=== PATIENT | female | born 2000 | race Caucasian/White ===

== ENCOUNTER 2021-04-10 19:39 | Emergency (ER) | payer OTHER, SELFPAY ==
[2021-04-10] VITALS (22 sets, daily range): BP systolic 101–154; BP diastolic 65–84; PULSE 80–105; RESP 12–22; TEMP 36.9; O2SAT 95–100
--- NOTE | ~2021-04-10 | XR_ITS ---
EXAMINATION: XR chest 1V portable DATE: 04/10/2021 20:57 INDICATION: Chest pain, shortness of breath and palpitations TECHNIQUE: frontal view of the chest was obtained. COMPARISON: None FINDINGS: The lungs are clear with no focal airspace opacities, pulmonary edema, pleural effusion or pneumothor ax. The cardiomediastinal silhouette is normal. Visualized bones and soft tissues are unremarkable. IMPRESSION: 1. Normal chest radiograph. Reviewed, dictated and finalized at location A. IMPRESSION: 1. Normal chest radiograph.
--- NOTE | 2021-04-10 19:44 | ECG_ITS ---
Measurements Intervals [place] Rate: 101 P: 70 ID: [id number] QRS: 85 QRSD: 86 T: 46 QT: 335 QTc: 434 Interpretive Statements SINUS TACHYCARDIA BORDERLINE T WAVE ABNORMALITY- ANTERIOR LEADS BASELINE ARTIFACT- I, II, AVL BORDERLINE ECG Electronically Signed On 04-10-2021 20:06:00 CDT by Geo Green D.O.
--- NOTE | 2021-04-10 20:34 | ED.ARRPALP ---
HPI - Arrhythmia/Palpitations General Chief Complaint: Arrhythmia/Palpitations Stated Complaint: headaches, palpations, shortness of breath Time Seen by Provider: 04/10/21 20:31 History of Present Illness HPI narrative: Palpitations intermittenly for the past week. Described as hard pounding irregular heart beat. Associated with mild chest pain, heavy breathing and light headedness. Happens more frequently when lying down at night. She has a h/o anxiety, but says that she has never had this symptoms due to anxiety. She is on lithium and reports sarkis she has never had her level checked. Related Data Allergies Allergy/AdvReac Type Severity Reaction Status Date / Time No Known Allergies Allergy Verified 04/10/21 19:44 Review of Systems Review of Systems: All systems reviewed & are unremarkable except as noted in HPI and below Constitutional: Constitutional: Denies chills and Denies fever(s) Eyes: Eyes: Reports no additional eye complaints ENT: Reports system reviewed and no additional complaints, except as documented Cardiovascular: Cardiovascular: Reports as per HPI Respiratory: Respiratory: Denies dyspnea Gastrointestinal: Gastrointestinal: Denies abdominal pain, Denies nausea and Denies vomiting Genitourinary: Genitourinary: Denies hematuria and Denies dysuria Musculoskeletal: Musculoskeletal: Denies back pain Neurologic: Denies dizziness and Denies weakness [facility] Social History Social History Gender identity (if verbalized by the patient): Female Exam Const: General: healthy appearing, no acute distress and alert Orientation/consciousness: patient oriented x3 HENMT: Head: normal to inspection Neck: Neck: normal visual inspection and no lymphadenopathy Chest: Chest palpation & inspection: no tenderness Resp: Effort & Inspection: normal respiratory effort Auscultation: clear to auscultation bilaterally, no rales, no rhonchi and no wheezes Cardio: Jugular venous distension: no JVD Rate: regular rate Rhythm: regular rhythm Heart sounds: no murmurs GI: Inspection: non-distended GI Palp: Yes Soft to palpation and No Tenderness to palpation present (GI) Skin: General skin exam: normal color Neuro: General: patient oriented x3 and moves all extremities Speech: normal speech Extrem: General: no edema Psych: Appearance: well kempt Affect: normal affect Course Vital Signs Vital signs: Vital Signs Temperature 36.9 C 04/10/21 19:45 Pulse Rate 105 H 04/10/21 19:45 Respiratory Rate 20 04/10/21 19:45 Blood Pressure 154/84 H 04/10/21 19:45 Pulse Oximetry 99 04/10/21 19:45 Temperature 36.9 C 04/10/21 19:45 Pulse Rate 105 H 04/10/21 19:45 Respiratory Rate 20 04/10/21 19:45 Blood Pressure 154/84 H 04/10/21 19:45 Pulse Oximetry 99 04/10/21 19:45 MDM - Arrhythmia/Palpitations MDM Narrative Medical decision making narrative: [place] level is mildly low, but she is stable on treatment. Remainder of work-up is negative. this is almost certainly due to anxiety. Differential Diagnosis Differential diagnosis: Likely palpitations, anxiety, sinus tachycardia and other (dehydration, lithium toxicity) Medical Records Attestation: I reviewed the patient's medical records. Lab Data Attestation: I reviewed the patient's lab results. Result diagrams: 04/10/21 21:04 04/10/21 21:04 Labs: Lab Results 04/10/21 04/10/21 04/10/21 Range/Units 21:04 21:04 21:04 WBC 11.3 H (4.5-10.0) K/mm3 RBC 4.30 (4.2-5.4) M/mm3 Hgb 12.4 (12.0-15.0) g/dL Hct 37.8 (37.0-47.0) % MCV 87.9 (80-100) fl MCH 28.8 (26-34) pg MCHC 32.8 (32-36) g/dl RDW 12.0 (11.5-14.5) % Plt Count 348 (150-375) k/mm3 MPV 8.8 (7.4-10.4) fl Immature Gran % (Auto) 0.4 (0-0.5) % Neut % (Auto) 54.0 (45.5-73.1) % Lymph % (Auto) 34.6 (18.3-44.2) % Hubbard % (Auto) 6.7 (2.
--- NOTE | 2021-04-10 20:41 | PC.NURSE ---
pt to ED c grandma, c/o palpitations and rapid, pounding heart rate x 2 weeks. hx of anxiety and ocd. takes lithium. appears anxious and also reports that whenever her arms are squeezed like they are when obtaining her blood pressure, pt feel like she cannot breathe . placed on solder sprayer, O2 and BP monitors. On monitor, pt appears to have infrequent irregular beats, possibly PVCs. denies past cardiac hx or family hx of congenital abnormalities. a/o x 4. skin pwd.
[2021-04-10 21:11] LABS: Basophils Absolute Auto 0.1 K/mm3 (0.0-0.1); Basophils Percent Auto 0.5 % (0.2-1.2); Eosinophils Absolute Auto 0.4 K/mm3 (0-0.3); Eosinophils Percent Auto 3.8 % (0-4.4); Hematocrit 37.8 % (37.0-47.0); Hemoglobin 12.4 g/dL (12.0-15.0); Immature Granulocyte Absolute 0.04 K/mm3 (0.00-0.031); Immature Granulocyte Percent A 0.4 % (0-0.5); Lymphocytes Percent Auto 34.6 % (18.3-44.2); Mean Corpuscular HGB Conc 32.8 g/dl (32-36); Mean Corpuscular Hemoglobin 28.8 pg (26-34); Mean Corpuscular Volume 87.9 fl (80-100); Mean Platelet Volume 8.8 fl (7.4-10.4); Monocytes Absolute Auto 0.8 K/mm3 (0.1-0.6); Monocytes Percent Auto 6.7 % (2.6-8.5); Neutrophils Absolute Auto 6.1 K/mm3 (1.3-6.7); Platelet Count Result 348 k/mm3 (150-375); White Blood Count 11.3 K/mm3 (4.5-10.0)
[2021-04-10 21:21] LABS: Anion Gap 6 mmol/L (8-16); Blood Urea Nitrogen 8 mg/dL (7-17); Calcium 9.5 mg/dL (8.4-10.2); Carbon Dioxide 23 mmol/L (22-30); Chloride 108 mmol/L (98-107); Estimated CRCL calculation 116 ml/min; Estimated Glomerular Filt Rate > 60; Glucose 92 mg/dL (65-105); Potassium 4.1 mmol/L (3.4-5.0); Sodium 137 mmol/L (137-145)
[2021-04-10 21:23] LABS: D Dimer 0.36 ug/mL (<0.48)
[2021-04-10 21:52] LABS: Lithium 0.3 mmol/L (0.6-1.2)
[2021-04-10] MEDS: SODIUM CHLORIDE 0.9% IV 1,000 ML 999 ML IV CONT (22:01)
== END 2021-04-10 23:13 | disposition home or self-care (01) ==
PROVIDERS: Emergency Provider Emergency Medicine; PCP Internal Medicine Infectious Disease
DX: R00.2 Palpitations (principal); F41.9 Anxiety disorder, unspecified; R00.0 Tachycardia, unspecified; R94.31 Abnormal electrocardiogram [ECG] [EKG]
CPT/HCPCS: 36415; 71045; 80048; 80178; 85025; 85380; 93005; 96360; 99284; J7030

== ENCOUNTER 2025-02-04 22:31 | Emergency (ER) | payer OTHER, SELFPAY ==
--- NOTE | ~2025-02-04 | XR_ITS ---
CHEST RADIOGRAPH, PA AND LATERAL CLINICAL HISTORY: CHEST UPPER ABD PAIN DIZZY NAUSEA . COMPARISON: 04/10/2021 TECHNIQUE: PA and lateral views of the chest. FINDINGS The cardiomediastinal silhouette is unremarkable. The lungs are clear. Visualized osseous structures and soft tissues are unremarkable. IMPRESSION: No focal infiltrate or effusion. Reviewed, dictated and finalized at location A.
--- NOTE | 2025-02-04 22:33 | ECG_ITS ---
Test Date: 2025-02-04 22:46:59 Measurements Intervals [place] Rate: 93 P: 65 NH: 174 QRS: 62 QRSD: 93 T: 45 QT: 340 QTc: 423 Interpretive Statements SINUS RHYTHM INCOMPLETE RIGHT BUNDLE BRANCH BLOCK LOW QRS VOLTAGE IN PRECORDIAL LEADS BORDERLINE ECG No previous ECG available for comparison Electronically Signed On 02-05-2025 06:15:37 CDT by Geo Green D.O.
--- OUTSIDE RECORDS SUMMARY | 2025-02-04 22:34 | XMS_ITS ---
Author Organization Formerly [facility] Address [address] [place] [address] Care Team Providers Care Store Stocker Name Role Phone Guillaume San Primary Care Provider Jessy Pearl Unavailable [phone] Allergies No Known Allergies REASON FOR VISIT sore tailbone Medications Medication SIG (Take, Route, Frequency, Duration) Notes Start Date End Date Status Propranolol HCl 40 MG 1 tablet Twice a d ay for 30 days Active Venlafaxine HCl ER 150 mg 1 capsule with food Once a day for 30 days Active Dexmethylphenidate HCl ER 35 MG 1 capsule in the morning Orally Once a day. for 30 days 01/01/2025 Not-Taking Dexmethylphenidate HCl ER 35 MG 1 capsule in the morning Orally Once a day. Please fill on or after January 27, 2025. for 30 days 01/01/2025 Not-Taking traZODone HCl 150 MG 0.5 tablet as neede d at bedtime Orally Once a day for 30 days Active lamoTRIgine 150 MG 1 tablet Once a day for 30 days Active busPIRone HCl 15 MG 2 tablets in am, 1 tablet in pm Twice a day for 30 days Active Triamcinolone Acetonide 0.1 % 1 application Externally Two times a Week for 30 days 06/12/2024 Not-Taking Shila 3-0.03 MG 1 tablet Orally Once a day for 28 day(s) Active Lurasidone HCl 40 MG 1 tablet in the evening with food Orally Once a day for 7 days 05/24/2024 Active Nicotine Polacrilex 4 MG 1 piece chew for 30 minutes as needed Mouth/Throat every 1-2 hours for 30 days As needed 01/02/2025 Active Dexmethylphenidate HCl ER 35 MG 1 capsule in the morning Orally Once a day. Please fill on or after February 21, 2025. for 30 days 01/01/2025 Active Ketoconazole 2 % as directed Externally Once a day for 30 days 12/15/2022 Not-Taking Influenza Vac Split Quad 0.5 ML as directed Intramuscular once Not-Taking Social History Tobacco Use: Social History Observation Description Date Details (start date - stop date) Unknown Sex Assigned At : Social History Observation Description Sex Assigned At Female Alcohol Screen (Audit-C) Question Answer Notes Did you have a drink containing alcohol in the p ast year? No Tobacco Control (Standard) Question Answer Notes Tobacco use: Uses tobacco in other forms Additional Findings: Tobacco user e-cigarette Problems Problem Type SNOMED Code ICD Code Onset Dates Problem Status W/U Status Risk Notes Problem Nicotine dependence (52415964) Nicotine dependence (F17.200) Active confirmed Vital Signs Weight 228.0 lbs 01/02/2025 Height 66 in 01/02/2025 BMI 36.8 kg/m2 01/02/2025 Blood pressure systolic 112 mm Hg 01/03/20 25 Blood pressure diastolic 76 mm Hg 025 Heart Rate 86 /min 01/02/2025 Oximetry 95 % 01/02/2025 Temperature 98.5 degrees Fahrenheit 01/03/20 25 Respiratory Rate 16 /min 01/02/2025 Encounters Encounter Location Date Provider Diagnosis [place] [address] [place] [address] 01/02/2025 Jessy Pearl Pilonidal cyst L05.91 and Nicotine dependence F17.200 Assessments Encounter Date Diagnosis (ICD Code) Assessment Notes Treatment Notes Treatment Clinical Notes Section Notes 01/02/2025 Pilonidal cyst (ICD-10 - L05.91) 01/02/2025 Nicotine dependence (ICD-10 - F17.200) 01/02/2025 Other Patient may self-administer their own medications or may self-administer their own oral medications per [facility] Protocol. Plan Of Treatment Medication Medication Name Sig Start Date Stop Date Notes Nicotine Polacrilex 4 MG 1 piece chew fo r 30 minutes as needed Mouth/Throat every 1-2 hours for 30 days 01/02/2025 Next Appt Details Follow Up: 6 Months, Reason: f/u Progress Notes * John CHACONB: 0 (24 yo F)Acc No.[id number]:01/02/2025 Progress Notes Patient: Sarita REID Provider: Angela Pearl APRN :2000 A ge:24 Y S ex:Female Date:01/02/2025 Address:[address] [place] [address] , [address], [place] [address] Pcp:Guillaume San Check In:11:33 AM [employer] Subjective: * Chief Complaints: * S ore tailbone * HPI: I nterim History: Emergency room visit N o. W as hospitalized N o.? D epression Screening: PHQ-9 L ittle interest or pleasure in doing things N ot at all, F eeling down, depressed, or hopeless N ot at all, T rouble falling or staying asleep, or sleeping too much N ot at all, F eeling tired or having little energy S everal days, P oor appetite or overeating N ot at all, F eeling bad about yourself or that you are a failure, or have let yourself or your family down N ot at all, T rouble concentrating on things, such as reading the newspaper or watching television N ot at all, M oving or speaking so slowly that other people could have noticed; or the opposite, being so fidgety or restless that you have been moving around a lot more than usual N ot at all, T houghts that you would be better off or of hurting yourself in some way N ot at all, T otal Score 1 ,?Interpretation M inimal Depression. S creening: Parke Suicide Severity Rating Scale (LF) D o you want to initiate with S creener form, 1 . Wish to be : Have you wished you were or wished you could go to sleep and not wake up? N o, 2 . Suicidal Thoughts: Have you actually had any thoughts of killing yourself? N o, 6 . Suicide Behavior Question: Have you ever done anything,started to do anything, or prepared to end your life? N o, I nterpretation: L ow Risk. S ummary: Tailbone pain for 1 week Reports having a bump on tailbone that had a cyst- mom drained it Feeling better PE reveals <2mm papule, no erythema, no drainage Advised to continue antibiotic ointment for next 48 hours, OTC analgesic for pain, ice for pain Requesting nicotine gum to stop vaping. * ROS: G eneral/Constitutional: Denies C hange in appetite. D enies C hills. D enies F atigue. D enies F ever. D enies H eadache. D enies W eight loss.? R espiratory: Denies D yspnea. C ardiovascular: Denies E winsome. D enies C hest pain. D enies?Claudication. G astrointestinal: Denies A bdominal pain. D enies N ausea. G enitourinary: urinary problems D enies. M usculoskeletal: Patient denies m usculoskeletal concerns. S kin: lesions A dmits, S ee HPI. D enies R polly. ? * Medical History: * Surgical History: r hinoplasty belly button removal wisdom teeth removal * Hospitalization/Major Diagno stic Procedure: N o Hospitalization History. * Family History: F ather: alive. M other: alive. * Social History: P rimary Social History: L iving Arrangement L iving Arrangement: I ndependent Living, I s this a supportive environment? Y es. A lcohol Use A lcohol Use Frequency: N ever. I llicit Substance Usage I llicit Substance Usage: N o. E mployment Status E mployment Status:?Unemployed. T obacco Use: T obacco Control (Standard) T obacco use: U ses tobacco in other forms, A dditional Findings: Tobacco user e -cigarette. D rugs/Alcohol: D rugs H ave you used drugs other than those for medical reasons in the past 12 months??No. A lcohol Screen (Audit-C) D id you have a drink containing alcohol in the past year??No. M iscellaneous: D omestic violence: No. Method of learning P referred method of learning: R eading,Discussion,Demonstration,Hearing. * Medications: T akingSyeda 3-0.03 MG Tablet 1 tablet Orally Once a day Lurasidone HCl 40 MG Tablet 1 tablet in the evening with food Orally Once a day lamoTRIgine 150 MG Tablet 1 tablet Once a day busPIRone HCl 15 MG Tablet 2 tablets in am, 1 tablet in pm Twice a day Propranolol HCl 40 MG Tablet 1 tablet Twice a day Venlafaxine HCl ER 150 mg Capsule Extended Release 24 Hour 1 capsule with food Once a day traZODone HCl 150 MG Tablet 0.5 tablet as needed at bedtime Orally Once a day Dexmethylphenidate HCl ER 35 MG Capsule Extended Release 24 Hour 1 capsule in the morning Orally Once a day. Please fill on or after February 21, 2025. Taking Shila 3-0.03 MG Tablet 1 tablet Orally Once a day Taking Lurasidone HCl 40 MG Tablet 1 tablet in the evening with food Orally Once a day Taking lamoTRIgine 150 MG Tablet 1 tablet Once a day Taking busPIRone HCl 15 MG Tablet 2 tablets in am, 1 tablet in pm Twice a day Taking Propranolol HCl 40 MG Tablet 1 tablet Twice a day Taking Venlafaxine HCl ER 150 mg Capsule Extended Release 24 Hour 1 capsule with food Once a day Taking traZODone HCl 150 MG Tablet 0.5 tablet as needed at bedtime Orally Once a day Taking Dexmethylphenidate HCl ER 35 MG Capsule Extended Release 24 Hour 1 capsule in the morning Orally Once a day. Please fill on or after February 21, 2025. Not-TakingTriamcinolone Acetonide 0.1 % Cream 1 application Externally Two times a Week Dexmethylphenidate HCl ER 35 MG Capsule Extended Release 24 Hour 1 capsule in the morning Orally Once a day. Dexmethylphenidate HCl ER 35 MG Capsule Extended Release 24 Hour 1 capsule in the morning Orally Once a day. Please fill on or after January 27, 2025. Ketoconazole 2 % Shampoo as directed Externally Once a day Influenza Vac Split Quad 0.5 ML Suspension Prefilled Syringe as directed Intramuscular once Medication List reviewed and reconciled with the patientNot-Taking Triamcinolone Acetonide 0.1 % Cream 1 application Externally Two times a Week Not-Taking Dexmethylphenidate HCl ER 35 MG Capsule Extended Release 24 Hour 1 capsule in the morning Orally Once a day. Not-Taking Dexmethylphenidate HCl ER 35 MG Capsule Extended Release 24 Hour 1 capsule in the morning Orally Once a day. Please fill on or after January 27, 2025. Not-Taking Ketoconazole 2 % Shampoo as directed Externally Once a day Not-Taking Influenza Vac Split Quad 0.5 ML Suspension Prefilled Syringe as directed Intramuscular once Medication List reviewed and reconciled with the patient * Allergies: N .K.D.A.no[Allergies Verified] Objective: * Vitals: I nitials: LL, Wt:228.0, Ht: 66, BMI:36.8, BP:112/76, HR:86, Oxygen sat %:95, Temp:98.5, RR:16, LMP: 11/2024, Pain scale:3. * Examination: G eneral Examination: GENERAL APPEARANCE: a lert, oriented, well developed, well nourished, in no acute distress. EYES: P ERRLA, sclera and conjunctiva clear. NOSE: n trevor patent. SKIN: S ee HPI. HEART: r egular rate and rhythm, no murmurs. LUNGS: r espirations regular and easy, clear to auscultation bilaterally. ABDOMEN: b owel sounds present, soft, nontender, nondistended, no masses palpable, no organomegaly . Assessment: * Assessment: 1. N icotine dependence - F17.200 2 . P ilonidal cyst - L05.91 (Primary)? Plan: * Treatment: 2. O thers Clinical Notes: Patient may self-administer their own medications or may self-administer their own oral medications per [facility] Protocol. * Procedure Codes: 3 008F BODY MASS INDEX [id number] MEDICAL NUTRITION, INDIV, [id number] BEHAV CHNG SMOKING 3-10 MIN * Preventive Medicine: Counseling: C are goal follow-up plan: B AL management provided Y es, Mariah kilgoree Normal BMI Follow-up L ifestyle education regarding diet. S MOKING: P atient counselled on the dangers of tobacco use and urged to quit. . . * Follow Up: 6 Months (Reason: f/u) * * FIRM [employer]NER Sign off status: Completed true * Provider: Angela Pearl, [place] Date: 0 01/02/2025 Generated for Nelson raman/Karl/eTransmitting on: 0 02/04/2025 10:34 PM CDT History and Physical Notes * HPI (History of Present Illness) Category Sub-Category Detail Notes Category Not es Interim History Was hospitalized No Emergency room visit No Depression Screening PHQ-9 Little inte rest or pleasure in doing things: Not at all Feeling down, depressed, or hopeless: No t at all Trouble falling or staying asleep, or sl eeping too much: Not at all Feeling tired or having little energy: S everal days Poor appetite or overeating: Not at all Feeling bad about yourself o r that you are a failure, or have let yourself or your family down: Not at all Trouble concentrating on thi ngs, such as reading the newspaper or watching television: Not at all Moving or speaking so slowly that other people could have noticed; or the opposite, being so fidgety or restless that you have been moving around a lot more than usual: Not at all Thoughts that you would be b dieudonne off or of hurting yourself in some way: Not at all Total Score: 1 Interpretation: Minimal Depression Summary Tailbone pain for 1 week Reports having a bump on tailbone that had a cyst- mom drained it Feeling better PE reveals <2mm papule, no erythema, no drainage Advised to continue antibiotic ointment for next 48 hours, OTC analgesic for pain, ice for pain Requesting nicotine gum to stop vaping Screening Parke Suicide Severity Rating Scale (LF) Do you want to initiate with: Screener form 1. Wish to be : Have you wished you were or wished you could go to sleep and not wake up?: No 2. Suicidal Thoughts: Have you actually had any thoughts of killing yourself?: No 6. Suicide Behavior Question: Have you ever done anything,started to do anything, or prepared to end your life?: No Interpretation:: Low Risk Examination Category Sub-Category Detail Notes Category Not es General Examination GENERAL APPEARANCE: alert, o riented, well developed, well nourished, in no acute distress EYES: PERRLA, sclera and c onjunctiva clear NOSE: nares patent HEART: regular rate and rhy thm, no murmurs LUNGS: respirations regular and easy, clear to auscultation bilaterally ABDOMEN: bowel sounds present , soft, nontender, nondistended, no masses palpable, no organomegaly SKIN: See HPI
--- OUTSIDE RECORDS SUMMARY | 2025-02-04 22:34 | XMS_ITS | Clinical Summary ---
Author Organization [facility] Address [address] [place] [address] Care Team Providers Care Log [facility] Name Role Phone Rachael Duffy DO Primary Care Provider [phone] Source Comments [facility],non-owned Affiliates and Associated Physician Practices is amultiple site organization consisting of ambulatory clinics and hospital sitesin [place], [place], [place] and [place]. This disclosure is being madepursuant to the Care Everywhere program and may not contain all information available regarding this patient. Last updated 18.[facility] Allergies No known active allergies Medications * Be aware that medications may not be up to date on this document. Alwaysverify current medications with the patient. Medication Sig Dispensed Refills Start Date End Date Status venlafaxine (EFFEXOR) 100 MG tablet Take 100 mg by mouth every morning Active venlafaxine (EFFEXOR) 37.5 MG tablet Take 75 mg by mouth at bedtime Active lithium CR (LITHOBID) 150 MG tablet Take 150 mg by mouth every 12 hours Active clonazePAM (KLONOPIN) 0.5 MG tablet Take 0.5 mg by mouth at bedtime Active QUEtiapine Fumarate (SEROQUEL PO) Active dicyclomine (BENTYL) 20 MG tablet Take 20 mg by mouth 4 times daily Active Active Problems Problem Noted Date Diagnosed Date Drug ingestion 08/16/2017 Assessment & Plan (08/22/2017 2:35 PM CDT): Assessment: 17 y.o. F with history of anxiety and depression here with ingestion of trazodone, brexpiprazole, and ativan. With brexpiprazole can see extrapyramidal symptoms, SYSTEMS DEVELOPMENT CONSULTANT depression, hypotension. Half life can be up to 91 hours. With trazodone can see QT prolongation, SYSTEMS DEVELOPMENT CONSULTANT depression, hypotension, and serotonin syndrome. With ativan overdose can see hypotension, respiratory depression, and bradycardia. We will monitor for these effects. EKG x2 have been normal, no further EKG needed. Patient has been medically stable for 4 days and no inpatient psychiatric bed is available. Family has arranged quite comprehensive care and a detailed safety plan for her at home. All acknowledge the risk of suicidal attempts and ideation. She is stable for discharge with this plan in place. Assessment & Plan (08/21/2017 11:28 AM CDT): Assessment: 17 y.o. F with history of anxiety and depression here with ingestion of trazodone, brexpiprazole, and ativan. With brexpiprazole can see extrapyramidal symptoms, SYSTEMS DEVELOPMENT CONSULTANT depression, hypotension. Half life can be up to 91 hours. With trazodone can see QT prolongation, SYSTEMS DEVELOPMENT CONSULTANT depression, hypotension, and serotonin syndrome. With ativan overdose can see hypotension, respiratory depression, and bradycardia. We will monitor for these effects. EKG x2 have been normal, no further EKG needed. Pt is doing much better today, neuro exam unremarkable. Pt is medically stable and cleared for further evaluation by central intake, awaiting bed placement. Plan: - observation by industrial safety and health manager and safety check room -diet regular -monitor I and O -VSq4 -consult to social media director - Consult toxicology, reccs appreciated: per tox, pt is at low risk for symptoms secondary to ingestion at this time. Due to her NUNEZ, tox is OK to start home dose of effexor (300mg) once a day. -tylenol and motrin PRN for NUNEZ -monitor for s/s hypotension, Serotonin syndrome, and vitals closely -Central intake contacted 08/18 -[facility] consult placed 08/18 Assessment & Plan (08/19/2017 10:15 AM CDT): Assessment: 17 y.o. F with history of anxiety and depression here with ingestion of trazodone, brexpiprazole, and ativan. With brexpiprazole can see extrapyramidal symptoms, SYSTEMS DEVELOPMENT CONSULTANT depression, hypotension. Half life can be up to 91 hours. With trazodone can see QT prolongation, SYSTEMS DEVELOPMENT CONSULTANT depression, hypotension, and serotonin syndrome. With ativan overdose can see hypotension, respiratory depression, and bradycardia. We will monitor for these effects. EKG x2 have been normal, no further EKG needed. Pt is doing much better today, neuro exam unremarkable. Pt is medically stable and cleared for further evaluation by central intake, awaiting bed placement. Plan: - observation by industrial safety and health manager and safety check room -diet regular -monitor I and O -VSq4 -consult to social media director - Consult toxicology, reccs appreciated: per tox, pt is at low risk for symptoms secondary to ingestion at this time. Due to her NUNEZ, tox is OK to start home dose of effexor (300mg) once a day. -tylenol and motrin PRN for NUNEZ -monitor for s/s hypotension, Serotonin syndrome, and vitals closely -Central intake contacted 08/18 -S consult placed 08/18 Assessment & Plan (08/18/2017 2:08 PM CDT): Assessment: 17 y.o. F with history of anxiety and depression here with ingestion of trazodone, brexpiprazole, and ativan. With brexpiprazole can see extrapyramidal symptoms, SYSTEMS DEVELOPMENT CONSULTANT depression, hypotension. Half life can be up to 91 hours. With trazodone can see QT prolongation, SYSTEMS DEVELOPMENT CONSULTANT depression, hypotension, and serotonin syndrome. With ativan overdose can see hypotension, respiratory depression, and bradycardia. We will monitor for these effects. EKG x2 have been normal, no further EKG needed. Pt is doing much better today, neuro exam unremarkable. Pt is medically stable, VSS, and tolerating PO. Plan: - observation by industrial safety and health manager and safety check room -diet regular -monitor I and O -VSq4 -CR monitoring d/c 08/18 -continuous pulse ox d/c 08/18 -consult to social media director - MIVF @ 100 mls/hr d/c and due to IV possible infiltration, d/c 08/18 - Consult toxicology, reccs appreciated: per tox, pt is at low risk for symptoms secondary to ingestion at this time. Due to her NUNEZ, tox is OK to start home dose of effexor (300mg) once a day. Also ordered tylenol and motrin PRN for NUNEZ. -monitor for s/s hypotension, Serotonin syndrome, and vitals closely -UA pending -Central intake contacted 08/18 -BHS consult placed 08/18 Assessment & Plan (08/17/2017 11:49 AM CDT): Assessment: 17 y.o. F with history of anxiety and depression here with ingestion of trazodone, brexpiprazole, and ativan. With brexpiprazole can see extrapyramidal symptoms, SYSTEMS DEVELOPMENT CONSULTANT depression, hypotension. Half life can be up to 91 hours. With trazodone can see QT prolongation, SYSTEMS DEVELOPMENT CONSULTANT depression, hypotension, and serotonin syndrome. With ativan overdose can see hypotension, respiratory depression, and bradycardia. We will monitor for these effects. Plan: - observation by industrial safety and health manager and safety check room -diet NPO -monitor I and O -VSq4 -CR monitoring -continuous pulse ox -consult to social media director - MIVF @ 100 mls/hr - Repeat EKG completed in the AM - Consult toxicology, reccs appreciated -monitor for s/s hypotension, Serotonin syndrome, and vitals closely -UA pending Assessment & Plan (08/17/2017 3:02 AM CDT): Assessment: 17 y.o. F with history of anxiety and depression here with ingestion of trazodone, brexpiprazole, and ativan. With brexpiprazole can see extrapyramidal symptoms, SYSTEMS DEVELOPMENT CONSULTANT depression, hypotension. With trazodone can see QT prolongation, SYSTEMS DEVELOPMENT CONSULTANT depression, hypotension, and serotonin syndrome. With ativan overdose can see hypotension, respiratory depression, and bradycardia. We will monitor for these effects. Plan: - Admit to TCU for close monitoring of cardiorespiratory status - MIVF - Repeat EKG in AM - Consult toxicology Immunizations Name Administration Dates Next Due INFLUENZA VACCINE, QUADR. (F LUZONE; FLULAVAL; FLUARIX; AFLURIA QUADRIVALENT; 6MO+), 0.5 ML (IIV4) 08/17/2017 Social History Tobacco Use Types Packs/Day Years Used Date Smoking Tobacco: Never Smokeless Tobacco: Never Alcohol Use Standard Drinks/Week Comments No 0 (1 standard drink = 0.6 oz pur e alcohol) Sex and Gender Information Value Date Recorded Sex Assigned at Not on file Gender Identity Not on file Sexual Orientation Not on file Last Filed Vital Signs Vital Sign Reading Time Taken Comments Blood Pressure 120/74 02/01/2019 5:13 PM CDT Pulse 105 02/01/2019 5:13 PM CDT Temperature 37.1 C (98.8 F) 02/01/2019 5:13 PM CDT Respiratory Rate 15 02/01/2019 5:13 PM CDT Oxygen Saturation 98% 02/01/2019 5:13 PM CDT Inhaled Oxygen Concentration - - Weight 95.7 kg (211 lb) 02/01/2019 5:13 PM CDT Height 167.6 cm (5' 6 ) 02/01/2019 5:13 PM CDT Body Mass Index 34.06 02/01/2019 5:13 PM CDT Plan of Treatment Health Maintenance Due Date Last Done Comments PAP SMEAR 2000 HIV SCREENING 2015 HPV VACCINE (1 - 3-dose series) 2015 CHLAMYDIA/GONORRHEA SCREENING 2016 HEPATITIS C SCREENING 06/18/2018 DTAP/TDAP/TD VACCINES (1 - Tdap) 2019 HEPATITIS B VACCINE (1 of 3 - 19+ 3-dose series) 2019 COVID-19 VACCINE (1 - 2023-2 5 season) 2024 DEPRESSION SCREENING 10/30/2024 INFLUENZA VACCINE (Season Ended) 2025 08/17/20 17 ZOSTER VACCINE (1 of 2) 2050 HIB VACCINE Aged Out No longer eligi ble based on patient's age to complete this topic MENINGOCOCCAL (Group B) VACC INE SHARED DECISION-MAKING Aged Out No longer eligibl e based on patient's age to complete this topic MENINGOCOCCAL GROUPS A/C/Y/W VACCINE Aged Out No longer eligible b ased on patient's age to complete this topic PNEUMOCOCCAL VACCINE Aged Out No long er eligible based on patient's age to complete this topic Advance Directives * Full Code (Latest Code Status on File) Date Activated Date Inactivated Comments 08/17/2017 3:08 AM 08/22/2017 5:53 PM Care Teams Log [facility] Relationship Specialty Start Date End Date Rachael Duffy DO PCP - General Pediatrics 09/21/16
--- OUTSIDE RECORDS SUMMARY | 2025-02-04 22:34 | XMS_ITS | Patient Health Record ---
Author Organization [facility] Address [address] [place] [address] Care Team Providers Care Candy Maker Name Role Phone Jaswinder Guillaume Primary Care Provider [phone] Anna Neal Unavailable [phone] Jessy Pearl Unavailable [phone] Allergies No Known Allergies Results Component Value Reference Range Notes 12 Panel Urine Drug Screen Reviewed date:05/29/2024 08:06:56 AM Interpretation: Performing Lab: Notes/Report: THC p PETER n MOP (OPI) n AMP p MET n BAR n BZO n MDMA n MTD n OXY n PCP n BUP n 12 Panel Urine Drug Screen Reviewed date:10/17/2024 04:28:49 PM Interpretation: Performing Lab: Notes/Report: THC neg PETER neg MOP (OPI) neg AMP neg MET neg BAR neg BZO neg MDMA neg MTD neg OXY neg PCP neg BUP neg Reason For Referral No Information Medications Medication SIG (Take, Route, Frequency, Duration) Notes Start Date End Date Status lamoTRIgine 150 MG 1 tablet Once a day for 30 days Active busPIRone HCl 15 MG 2 tablets in am, 1 tablet in pm Twice a day for 30 days Active Propranolol HCl 40 MG 1 tablet Twice a d ay for 30 days Active Nicotine Polacrilex 4 MG 1 piece chew for 30 minutes as needed Mouth/Throat every 1-2 hours for 30 days As needed 01/02/2025 Active Venlafaxine HCl ER 150 mg 1 [...] 21, 2025. for 30 days 01/01/2025 Active Triamcinolone Acetonide 0.1 % 1 application Externally Two times a Week for 30 days 06/12/2024 Not-Taking Ketoconazole 2 % as directed Externally Once a day for 30 days 12/15/2022 Not-Taking Shila 3-0.03 MG 1 tablet Orally Once a day for 28 day(s) Active Influenza Vac Split Quad 0.5 ML as directed Intramuscular once Not-Taking Lurasidone HCl 40 MG 1 tablet in the evening with food Orally Once a day for 30 days 05/24/2024 Active Immunizations Vaccine Route Administration Date Status Comme nts FLU VAC NO PRSV 4VAL 6 mo+ IM Intramuscular 07/25/2022 Administered Pt tolerated injection well. Pt voiced no question or concern. COVID-19 Moderna Booster IM Intramuscular 12/16/2021 Administered patient tolerat ed well, denies any questions or concerns at this time. Social History Tobacco Use: Social History Observation [...] Problem Status W/U Status Risk Notes Problem 82615913 Bipolar II disorder (F31.81) 2 Active confirmed Problem 700528163 Irritable bowel syndrome with diarrhea (K58.0) Active confirmed Problem 84920876 ADHD (attention deficit hyperactivity disorder), combined type (F90.2) Active confirmed Problem 82540032 PTSD (post-traumatic stress disorder) (F43.10) Active confirmed Problem 03060213 Anxiety (F41.9) Active confirmed Problem Nicotine dependence (07407908) Nicotine dependence (F17.200) Active confirmed Problem 13232459 Bipolar affectiv e disorder, remission status unspecified (F31.9) Active confirmed Problem 03927615 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) Active confirmed Problem 614860270 Binge eating disorder (F50.81) Active confirmed Problem Obesity (306456441) Obesity, unspecified classification, unspecified obesity type, unspecified whether serious comorbidity present (E66.9) Active confirmed Vital Signs Heart Rate 86 /min 01/02/2025 Temperature 98.5 degrees Fahrenheit 01/02/2025 Respiratory Rate 16 /min 01/02/2025 Blood pressure diastolic 76 mm Hg 01/02/2025 Oximetry 95 % 01/02/2025 Height 66 in 01/02/2025 Blood pressure systolic 112 mm Hg 01/02/2025 Weight 228.0 lbs 01/02/2025 BMI 36.8 kg/m2 01/02/2025 Encounters Encounter Location Date Provider Diagnosis [address] [address] 02/15/2024 Anna Sanftleben Bipolar affective disorder, remission status unspecified F31.9 and Anxiety F41.[address] [address] 02/29/2024 Anna Sanftleben Bipolar affective disorder, remission status unspecified F31.9 and Anxiety F41.[address] [address] 03/14/2024 Anna Sanftleben Anxiety F41.9 and PTSD (post-traumatic stress disorder) F43.[address] [address] 04/01/2024 Guillaume San Bipolar II disorder F31.81 ; Anxiety F41.9 ; Binge eating disorder F50.81 and PTSD (post-traumatic stress disorder) F43.[address] [address] 04/29/2024 Guillaume San Bipolar II disorder F31.81 ; Binge eating disorder F50.81 ; PTSD (post-traumatic stress disorder) F43.10 and Anxiety F41.[address] [address] 05/23/2024 Guillaume San Medication monitorin g encounter Z51.81 ; Bipolar II disorder F31.81 ; Binge eating disorder F50.81 ; Anxiety F41.9 and PTSD (post-traumatic stress disorder) F43.[address] [address] 06/12/2024 Jessy Pearl Establishing care with new doctor, encounter for Z76.89 ; Screening for deficiency anemia Z13.0 ; Screening for metabolic disorder Z13.228 ; Screening for hyperlipidemia Z13.220 ; Binge eating disorder F50.81 ; Anxiety F41.9 ; Irritable bowel syndrome with diarrhea K58.0 ; Knee pain M25.569 ; Keratosis pilaris L85.8 and Rash R21 [address] [address] 06/18/2024 Guillaume San Bipolar II disorder F31.81 ; Binge eating disorder F50.81 ; PTSD (post-traumatic stress disorder) F43.10 and Anxiety F41.[address] [address] 08/13/2024 Guillaume San Bipolar II disorder F31.81 ; Binge eating disorder, moderate F50.811 ; Anxiety F41.9 and PTSD (post-traumatic stress disorder) F43.[address] [address] 10/17/2024 Guillaume San Bipolar II disorder F31.81 ; Anxiety F41.9 ; PTSD (post-traumatic stress disorder) F43.10 ; Binge eating disorder, moderate F50.811 and Medication monitoring encounter Z51.[address] [address] 01/01/2025 Guillaume San Bipolar II disorder F31.81 ; Anxiety F41.9 and Binge eating disorder, moderate F50.811 [facility] [address] [place] [address] 01/02/2025 Jessy Pearl Pilonidal cyst L05.9 1 and Nicotine dependence F17.[address] [place] [address] 03/21/2024 Guillaume San Binge eating disorde r F50.[address] [place] [address] 03/29/2024 Guillaume San [facility], [facility] [address] [address] 03/29/2024 Guillaume San Binge eating disorde r F50.[address] [place] [address] 04/03/2024 Guillaume San [facility], [facility] [address] 05/13/2024 Guillaume San Binge eating disorde r F50.[address] [place] [address] 10/21/2024 Guillaume San Bipolar II disorder F31.81 [facility], [facility] [address] 11/06/2024 Jessy Pearl Screening for deficiency anemia Z13.0 ; Screening for metabolic disorder Z13.228 ; Screening for thyroid disorder Z13.29 and Screening for hyperlipidemia Z13.[address] [place] [address] 12/26/2024 Guillaume San Bipolar II disorder F31.81 [facility], [facility] [address] 12/26/2024 Guillaume San [facility], [facility] [address] [address] 01/01/2025 Guillaume San [address] [place] [address] 01/07/2025 Guillaume San Bipolar II disorder F31.[address] [place] [address] 05/24/2024 Guillaume San [address] [place] [address] 06/21/2024 Guillaume San Assessments Encounter Date Diagnosis (ICD Code) Assessment Notes Treatment Notes Treatment Clinical Notes Section Notes 05/23/2024 Bipolar II disorder (ICD-10 - F31.81) Client is open to reduction of venlafaxine and adding Latuda to treatment plan to see if this reduces irriatbility and anger issues. No other treatment plan changes at this visit. 05/23/2024 Medication monitoring encounter (ICD-10 - Z51.81) Client is open to reduction of venlafaxine and adding Latuda to treatment plan to see if this reduces irriatbility and anger issues. No other treatment plan changes at this visit. 04/01/2024 Bipolar II disorder (ICD-10 - F31.81) Client doing well overall with improved anxiety. However, struggling with some anger issues. Has had increased responsiblities with adoption of 2 puppies. Discussed increasing lamotrigine dosage as is on higher dose of venlafaxine for anxiety and mood stabilizer likely not enough coverage for bipolar symptoms. Client is agreeable. Discussed taking propranolol scheduled and not prn as well. Client also agreeable. No other treatment plan changes needed at this time. 02/15/2024 Bipolar affective disorder, remission status unspecified (ICD-10 - F31.9) Pt will continu e medications as prescribed and will continue therapy to develop goals and manage symptoms. 01/07/2025 Bipolar II disorder (ICD-10 - F31.81) 01/02/2025 Nicotine dependence (ICD-10 - F17.200) 01/02/2025 Pilonidal cyst (ICD-10 - L05.91) 10/21/2024 Bipolar II disorder (ICD-10 - F31.81) 06/18/2024 Bipolar II disorder (ICD-10 - F31.81) Client with improvements in mood/anger with decrease in venlafaxine and addition of Latuda. No changes in treatment plan currently. 05/13/2024 Binge eating disorder (ICD-10 - F50.81) 03/21/2024 Binge eating disorder (ICD-10 - F50.81) 03/14/2024 Anxiety (ICD-10 - F41.9) Pt will continue medications as prescribed and will continue therapy to develop goals and manage symptoms. 02/29/2024 Bipolar affective disorder, remission status unspecified (ICD-10 - F31.9) Pt will continu e medications as prescribed and will continue therapy to develop goals and manage symptoms. 01/01/2025 Bipolar II disorder (ICD-10 - F31.81) Client doing well, no changes to tx plan needed at this time. 01/01/2025 Anxiety (ICD-10 - F41.9) Client doing well, no changes to tx plan needed at this time. 12/26/2024 Bipolar II disorder (ICD-10 - F31.81) 11/06/2024 Screening for metabolic disorder (ICD-10 - Z13.228) 11/06/2024 Screening for deficiency anemia (ICD-10 - Z13.0) 10/17/2024 Bipolar II disorder (ICD-10 - F31.81) Client with increased anger, binge eating, depressive symptoms including fatigue. Client agreeable to increased Focalin and Latuda and she requests a trial of trazodone discontinuation to see if helpful for her symptoms. She is working in therapy but hasn't gone in a while. Encouraged client to re-engage. 10/17/2024 Anxiety (ICD-10 - F41.9) Client with increased anger, binge eating, depressive symptoms including fatigue. Client agreeable to increased Focalin and Latuda and she requests a trial of trazodone discontinuation to see if helpful for her symptoms. She is working in therapy but hasn't gone in a while. Encouraged client to re-engage. 08/13/2024 Bipolar II disorder (ICD-10 - F31.81) Client doing well, no treatment plan changes needed. 08/13/2024 Binge eating disorder, moderate (ICD-10 - F50.811) Client doing well, no treatment plan changes needed. 06/12/2024 Establishing care with new doctor, encounter for (ICD-10 - Z76.89) 06/12/2024 Screening for deficiency anemia (ICD-10 - Z13.0) 04/29/2024 Bipolar II disorder (ICD-10 - F31.81) Client with breakthrough binge eating behaviors on current dose of generic Focalin ER. Client agreeable to trial of 30 mg ER Focalin by adding 10 mg to her current dose of 20 mg for next week and then updating office. No other treatment plan changes needed. 03/29/2024 Binge eating disorder (ICD-10 - F50.81) 04/29/2024 Binge eating disorder (ICD-10 - F50.81) Client with breakthrough binge eating behaviors on current dose of generic Focalin ER. Client agreeable to trial of 30 mg ER Focalin by adding 10 mg to her current dose of 20 mg for next week and then updating office. No other treatment plan changes needed. 06/12/2024 Screening for metabolic disorder (ICD-10 - Z13.228) 08/13/2024 Anxiety (ICD-10 - F41.9) Client doing well, no treatment plan changes needed. 10/17/2024 PTSD (post-traumatic stress disorder) (ICD-10 - F43.10) Client with increased anger, binge eating, depressive symptoms including fatigue. Client agreeable to increased Focalin and Latuda and she requests a trial of trazodone discontinuation to see if helpful for her symptoms. She is working in therapy but hasn't gone in a while. Encouraged client to re-engage. 11/06/2024 Screening for thyroid disorder (ICD-10 - Z13.29) 01/01/2025 Binge eating disorder, moderate (ICD-10 - F50.811) Client doing well, no changes to tx plan needed at this time. 06/18/2024 Binge eating disorder (ICD-10 - F50.81) Client with improvements in mood/anger with decrease in venlafaxine and addition of Latuda. No changes in treatment plan currently. 02/29/2024 Anxiety (ICD-10 - F41.9) Pt will continue medications as prescribed and will continue therapy to develop goals and manage symptoms. 03/14/2024 PTSD (post-traumatic stress disorder) (ICD-10 - F43.10) Pt will continue medications as prescribed and will continue therapy to develop goals and manage symptoms. 02/15/2024 Anxiety (ICD-10 - F41.9) Pt will continue medications as prescribed and will continue therapy to develop goals and manage symptoms. 04/01/2024 Anxiety (ICD-10 - F41.9) Client doing well overall with improved anxiety. However, struggling with some anger issues. Has had increased responsiblities with adoption of 2 puppies. Discussed increasing lamotrigine dosage as is on higher dose of venlafaxine for anxiety and mood stabilizer likely not enough coverage for bipolar symptoms. Client is agreeable. Discussed taking propranolol scheduled and not prn as well. Client also agreeable. No other treatment plan changes needed at this time. 05/23/2024 Binge eating disorder (ICD-10 - F50.81) Client is open to reduction of venlafaxine and adding Latuda to treatment plan to see if this reduces irriatbility and anger issues. No other treatment plan changes at this visit. 04/01/2024 Binge eating disorder (ICD-10 - F50.81) Client doing well overall with improved anxiety. However, struggling with some anger issues. Has had increased responsiblities with adoption of 2 puppies. Discussed increasing lamotrigine dosage as is on higher dose of venlafaxine for anxiety and mood stabilizer likely not enough coverage for bipolar symptoms. Client is agreeable. Discussed taking propranolol scheduled and not prn as well. Client also agreeable. No other treatment plan changes needed at this time. 05/23/2024 Anxiety (ICD-10 - F41.9) Client is open to reduction of venlafaxine and adding Latuda to treatment plan to see if this reduces irriatbility and anger issues. No other treatment plan changes at this visit. 06/18/2024 PTSD (post-traumatic stress disorder) (ICD-10 - F43.10) Client with improvements in mood/anger with decrease in venlafaxine and addition of Latuda. No changes in treatment plan currently. 11/06/2024 Screening for hyperlipidemia (ICD-10 - Z13.220) 10/17/2024 Binge eating disorder, moderate (ICD-10 - F50.811) Client with increased anger, binge eating, depressive symptoms including fatigue. Client agreeable to increased Focalin and Latuda and she requests a trial of trazodone discontinuation to see if helpful for her symptoms. She is working in therapy but hasn't gone in a while. Encouraged client to re-engage. 08/13/2024 PTSD (post-traumatic stress disorder) (ICD-10 - F43.10) Client doing well, no treatment plan changes needed. 06/12/2024 Screening for hyperlipidemia (ICD-10 - Z13.220) 04/29/2024 PTSD (post-traumatic stress disorder) (ICD-10 - F43.10) Client with breakthrough binge eating behaviors on current dose of generic Focalin ER. Client agreeable to trial of 30 mg ER Focalin by adding 10 mg to her current dose of 20 mg for next week and then updating office. No other treatment plan changes needed. 04/29/2024 Anxiety (ICD-10 - F41.9) Client with breakthrough binge eating behaviors on current dose of generic Focalin ER. Client agreeable to trial of 30 mg ER Focalin by adding 10 mg to her current dose of 20 mg for next week and then updating office. No other treatment plan changes needed. 06/12/2024 Binge eating disorder (ICD-10 - F50.81) 10/17/2024 Medication monitoring encounter (ICD-10 - Z51.81) Client with increased anger, binge eating, depressive symptoms including fatigue. Client agreeable to increased Focalin and Latuda and she requests a trial of trazodone discontinuation to see if helpful for her symptoms. She is working in therapy but hasn't gone in a while. Encouraged client to re-engage. 06/18/2024 Anxiety (ICD-10 - F41.9) Client with improvements in mood/anger with decrease in venlafaxine and addition of Latuda. No changes in treatment plan currently. 04/01/2024 PTSD (post-traumatic stress disorder) (ICD-10 - F43.10) Client doing well overall with improved anxiety. However, struggling with some anger issues. Has had increased responsiblities with adoption of 2 puppies. Discussed increasing lamotrigine dosage as is on higher dose of venlafaxine for anxiety and mood stabilizer likely not enough coverage for bipolar symptoms. Client is agreeable. Discussed taking propranolol scheduled and not prn as well. Client also agreeable. No other treatment plan changes needed at this time. 05/23/2024 PTSD (post-traumatic stress disorder) (ICD-10 - F43.10) Client is open to reduction of venlafaxine and adding Latuda to treatment plan to see if this reduces irriatbility and anger issues. No other treatment plan changes at this visit. 06/12/2024 Anxiety (ICD-10 - F41.9) 06/12/2024 Irritable bowel syndrome with diarrhea (ICD-10 - K58.0) Pt. to continue use of PRN Loperamide 06/12/2024 Knee pain (ICD-10 - M25.569) Reported worsening with weight gain, will continue to monitor. Pt. advised to RTC if worsening pain or swelling, erythema. 06/12/2024 Keratosis pilaris (ICD-10 - L85.8) Discussed management with exfoliation and creams. Advised pt to use a homemade sugar scrub if OTC scrubs were too harsh. 06/12/2024 Rash (ICD-10 - R21) [place]2024 [place]. Discussed sleep hygiene and caffeine intake with encouragement to limit electronic devices an hour before bed and to limit caffeine after 3:00pm. Exercise benefits for mood and health discussed. Psychoeducation regarding psychiatric illness provided. Client was educated about risks and benefits of medication, alternatives to medication, off label uses of medication, suicidal ideation with SSRIs, self-administrati on and compliance with medication along with how to safely store medication. Verbal informed consent obtained. Client agrees to return sooner if symptoms worsen or if suicidal or homicidal ideations occur. Client has the phone number to the 24-hour crisis line at [facility]. Questions addressed. Client verbalized understanding of all information and is agreeable to treatment plan. Client doing well overall with improved anxiety. However, struggling with some anger issues. Has had increased responsiblities with adoption of 2 puppies. Discussed increasing lamotrigine dosage as is on higher dose of venlafaxine for anxiety and mood stabilizer likely not enough coverage for bipolar symptoms. Client is agreeable. Discussed taking propranolol scheduled and not prn as well. Client also agreeable. No other treatment plan changes needed at this time. 04/29/2024 [place]. Discussed sleep hygiene and caffeine intake with encouragement to limit electronic devices an hour before bed and to limit caffeine after 3:00pm. Exercise benefits for mood and health discussed. Psychoeducation regarding psychiatric illness provided. Client was educated about risks and benefits of medication, alternatives to medication, off label uses of medication, suicidal ideation with SSRIs, self-administrati on and compliance with medication along with how to safely store medication. Verbal informed consent obtained. Client agrees to return sooner if symptoms worsen or if suicidal or homicidal ideations occur. Client has the phone number to the 24-hour crisis line at [facility]. Questions addressed. Client verbalized understanding of all information and is agreeable to treatment plan. Client with breakthrough binge eating behaviors on current dose of generic Focalin ER. Client agreeable to trial of 30 mg ER Focalin by adding 10 mg to her current dose of 20 mg for next week and then updating office. No other treatment plan changes needed. 05/23/2024 [place]. Discussed sleep hygiene and caffeine intake with encouragement to limit electronic devices an hour before bed and to limit caffeine after 3:00pm. Exercise benefits for mood and health discussed. Psychoeducation regarding psychiatric illness provided. Client was educated about risks and benefits of medication, alternatives to medication, off label uses of medication, suicidal ideation with SSRIs, self-administrati on and compliance with medication along with how to safely store medication. Verbal informed consent obtained. Client agrees to return sooner if symptoms worsen or if suicidal or homicidal ideations occur. Client has the phone number to the 24-hour crisis line at [facility]. Questions addressed. Client verbalized understanding of all information and is agreeable to treatment plan. Client is open to reduction of venlafaxine and adding Latuda to treatment plan to see if this reduces irriatbility and anger issues. No other treatment plan changes at this visit. 06/18/2024 [place]. Discussed sleep hygiene and caffeine intake with encouragement to limit electronic devices an hour before bed and to limit caffeine after 3:00pm. Exercise benefits for mood and health discussed. Psychoeducation regarding psychiatric illness provided. Client was educated about risks and benefits of medication, alternatives to medication, off label uses of medication, suicidal ideation with SSRIs, self-administrati on and compliance with medication along with how to safely store medication. Verbal informed consent obtained. Client agrees to return sooner if symptoms worsen or if suicidal or homicidal ideations occur. Client has the phone number to the 24-hour crisis line at [facility]. Questions addressed. Client verbalized understanding of all information and is agreeable to treatment plan. Client with improvements in mood/anger with decrease in venlafaxine and addition of Latuda. No changes in treatment plan currently. 08/13/2024 [place]. Discussed sleep hygiene and caffeine intake with encouragement to limit electronic devices an hour before bed and to limit caffeine after 3:00pm. Exercise benefits for mood and health discussed. Psychoeducation regarding psychiatric illness provided. Client was educated about risks and benefits of medication, alternatives to medication, off label uses of medication, suicidal ideation with SSRIs, self-administrati on and compliance with medication along with how to safely store medication. Verbal informed consent obtained. Client agrees to return sooner if symptoms worsen or if suicidal or homicidal ideations occur. Client has the phone number to the 24-hour crisis line at [facility]. Questions addressed. Client verbalized understanding of all information and is agreeable to treatment plan. Client doing well, no treatment plan changes needed. 10/17/2024 [place]. Discussed sleep hygiene and caffeine intake with encouragement to limit electronic devices an hour before bed and to limit caffeine after 3:00pm. Exercise benefits for mood and health discussed. Psychoeducation regarding psychiatric illness provided. Client was educated about risks and benefits of medication, alternatives to medication, off label uses of medication, suicidal ideation with SSRIs, self-administrati on and compliance with medication along with how to safely store medication. Verbal informed consent obtained. Client agrees to return sooner if symptoms worsen or if suicidal or homicidal ideations occur. Client has the phone number to the 24-hour crisis line at [facility]. Questions addressed. Client verbalized understanding of all information and is agreeable to treatment plan. Client with increased anger, binge eating, depressive symptoms including fatigue. Client agreeable to increased Focalin and Latuda and she requests a trial of trazodone discontinuation to see if helpful for her symptoms. She is working in therapy but hasn't gone in a while. Encouraged client to re-engage. [place]25 [place]. Discussed sleep hygiene and caffeine intake with encouragement to limit electronic devices an hour before bed and to limit caffeine after 3:00pm. Exercise benefits for mood and health discussed. Psychoeducation regarding psychiatric illness provided. Client was educated about risks and benefits of medication, alternatives to medication, off label uses of medication, suicidal ideation with SSRIs, self-administrati on and compliance with medication along with how to safely store medication. Verbal informed consent obtained. Client agrees to return sooner if symptoms worsen or if suicidal or homicidal ideations occur. Client has the phone number to the 24-hour crisis line at [facility]. Questions addressed. Client verbalized understanding of all information and is agreeable to treatment plan. Client doing well, no changes to tx plan needed at this time. 01/02/2025 Other Patient may self-administ er their own medications or may self-administ er their own oral medications per [place] Protocol. Plan Of Treatment Pending Test Test Name Order Date TSH* 07/25/2022 CBC With Differential/Platelet* 07/25/20 22 Vitamin D, 25-Hydroxy* 07/25/2022 CMP 14 Comprehensive Metabolic Panel* Future Test Test Name Order Date CBC With Differential/Platelet* 11/07/19 25 Vitamin D, 25-Hydroxy* 11/07/2024 Lipid Panel* 11/07/2024 CMP 14 Comprehensive Metabolic Panel* TSH Rfx on Abnormal to Free T4 5 Insurance Providers Payer Name Payer Address Payer Phone Subscriber Number Group Number Insured Name Patient Relationship to Insured Coverage Start Date Coverage End Date [facility] [address] [address] [place] [address] [id number] Sarita Chacon Self - patient is the insured 3 [employer] [address] [place] [address] [id number] Sarita Chacon Self - patient is the insured 4 4 [employer] [address] [place] [address] [id number] Sarita Chacon Self - patient is the insured 9 9 [employer] [address] [place] [address] [id number] Sarita Chacon Self - patient is the insured 1 1 [employer] [address] [place] [address] [id number] Sarita Chacon Self - patient is the insured 1 1 [employer] [facility] Telehealth [address] [place] [address] [id number] Sarita Chacon Self - patient is the insured 9 4 [employer] [address] [place] [address] [id number] Sarita Chacon Self - patient is the insured 4 4 Medical (General) History Medical History History ICD Code Bipolar affective disorder, remission st atus unspecified F31.9 Anxiety F41.9 irritable bowel syndrome with diarrhea Keratosis pilaris Surgical History Surgery Date(Month/Year) rhinoplasty belly button removal wisdom teeth removal Hospitalization History Reason Date(Month/Year)
--- OUTSIDE RECORDS SUMMARY | 2025-02-04 22:34 | XMS_ITS ---
Author Organization [facility]ly [facility], [facility] Address [address] [place] [address] Care Team Providers Care Client Insights Consultant Name Role Phone Guillaume San Primary Care Provider [phone] REASON FOR VISIT PA Dexmethylphenidate ER 35mg Social History Sex Assigned At : Social History Observation Description Sex Assigned At Female Encounters Encounter Location Date Provider Diagnosis [facility] [address] [place] [address] 01/01/2025 Guillaume San Plan Of Treatment No Information Progress Notes * John CHACONB: 0 (24 yo F)Acc No.[id number]:01/01/2025 Patient: Gordon BHATDORINA Sarita :2000 A ge:24 Y S ex:Female Address:[address] [place] [address], [address] * true * Date: Generated for Printi ng/Faxing/eTransmitting on: 0 02/04/2025 10:34 PM CDT
--- OUTSIDE RECORDS SUMMARY | 2025-02-04 22:34 | XMS_ITS ---
Author Organization [facility] Address [address] [place] [address] Care Team Providers Care Hospice Office Coordinator Name Role Phone Guillaume San Primary Care Provider REASON FOR VISIT refill Medications Medication SIG (Take, Route, Fr equency, Duration) Notes Start Date End Date Status Lurasidone HCl 40 MG 1 tablet in the piero susan with food Orally Once a day for 30 days 05/24/2024 Active Social History Sex Assigned At : Social History Observation Description Sex Assigned At Female Encounters Encounter Location Date Provider Diagnosis [address] [place] [address] 01/07/2025 Guillaume San Bipolar II disorder F31.81 Assessments Encounter Date Diagnosis (ICD Code) Assessment Notes Treatment Notes Treatment Clinical Notes Section Notes 01/07/2025 Bipolar II disorder (ICD-10 - F31.81) Plan Of Treatment Medication Medication Name Sig Start Date Stop Date Notes Lurasidone HCl 40 MG 1 tablet in the piero susan with food Orally Once a day for 30 days 05/24/2024 Progress Notes * Sindy CHACON: 0 (24 yo F)Acc No.[id number]:01/07/2025 Patient: Gordon Sarita DURAN :2000 A ge:24 Y S ex:Female Address:[facility], [place], [address] * Refills Refill Lurasidone HCl Tablet, 40 MG, Orally, 30 Tablet, 1 tablet in the evening with food, Once a day, 30 days, Refills=2 * true * Date: Generated for Nelson raman/Karl/Alaina on: 0 02/04/2025 10:33 PM CDT
[2025-02-04 22:36] VITALS: BP 143/77; PULSE 87; RESP 16; TEMP 36.9; O2SAT 100
[2025-02-04 22:48] LABS: Basophils Absolute Auto 0.1 K/mm3 (0.0-0.1); Basophils Percent Auto 0.5 % (0.2-1.2); Eosinophils Absolute Auto 0.3 K/mm3 (0-0.3); Eosinophils Percent Auto 2.9 % (0-4.4); Hematocrit 36.1 % (37.0-47.0); Hemoglobin 11.8 g/dL (12.0-15.0); Immature Granulocyte Absolute 0.04 K/mm3 (0.00-0.031); Immature Granulocyte Percent A 0.4 % (0-0.5); Lymphocytes Absolute Auto 3.66 K/mm3 (0.9-3.2); Lymphocytes Percent Auto 35.9 % (18.3-44.2); Mean Corpuscular HGB Conc 32.7 g/dl (32-36); Mean Corpuscular Hemoglobin 28.7 pg (26-34); Mean Corpuscular Volume 87.8 fl (80-100); Mean Platelet Volume 8.9 fl (7.4-10.4); Monocytes Absolute Auto 0.8 K/mm3 (0.1-0.6); Monocytes Percent Auto 7.5 % (2.6-8.5); Neutrophils Absolute Auto 5.4 K/mm3 (1.3-6.7); Neutrophils Percent Auto 52.8 % (45.5-73.1); Platelet Count Result 362 k/mm3 (150-375); Red Blood Count 4.11 M/mm3 (4.2-5.4); Red Cell Distribution Width 11.9 % (11.5-14.5); White Blood Count 10.2 K/mm3 (4.5-10.0)
[2025-02-04 23:00] LABS: Partial Thromboplastin Time 27.5 Seconds (22.3-36.8); Prothrombin Time 13.6 Seconds (11.1-14.7)
[2025-02-04 23:04] LABS: Alanine Aminotransferase 34 U/L (6-35); Albumin Level 4.4 g/dL (3.5-5.1); Alkaline Phosphatase 104 U/L (38-126); Anion Gap 9 mmol/L (4-12); Aspartate Amino Transferase 92 U/L (14-36); Bilirubin,Total 0.4 mg/dL (0.2-1.3); Blood Urea Nitrogen 12 mg/dL (7-17); Calcium 9.5 mg/dL (8.4-10.2); Carbon Dioxide 27 mmol/L (22-30); Chloride 102 mmol/L (98-107); Estimated CRCL calculation 93 ml/min; Estimated Glomerular Filt Rate > 60; Glucose 103 mg/dL (65-110); Lipase 66 U/L (23-300); Potassium 4.1 mmol/L (3.4-5.0); Sodium 138 mmol/L (137-145)
[2025-02-04 23:15] LABS: Troponin I < 0.012 ng/mL (0.000-0.034)
[2025-02-05 00:46] VITALS: BP 128/75; PULSE 85; RESP 16; O2SAT 100
[2025-02-05 01:01] VITALS: O2SAT 100
--- NOTE | 2025-02-05 01:33 | ECG_ITS ---
Test Date: 2025-02-05 01:48:52 Measurements Intervals [place] Rate: 72 P: 51 WY: 199 QRS: 66 QRSD: 88 T: 38 QT: 375 QTc: 411 Interpretive Statements SINUS RHYTHM POSSIBLE RIGHT VENTRICULAR CONDUCTION DELAY BORDERLINE ECG Compared to ECG 02/04/2025 22:46:59 NO SIGNIFICANT CHANGE Electronically Signed On 02-05-2025 06:16:47 CDT by Geo Green D.O.
--- OUTSIDE RECORDS SUMMARY | 2025-02-05 01:56 | XMS_ITS ---
Author Organization [facility] Address [address] [place] [address] Care Team Providers Care Forest Fire Officer Name Role Phone Guillaume San Primary Care [...] Female Encounters Encounter Location Date Provider Diagnosis [address] [place] [address] 01/07/2025 Guillaume San Bipolar II disorder F31.81 [...] * Sindy CHACON: 0 (24 yo F)Acc No.[id number]:01/07/2025 Patient: Gordon Sarita DURAN :2000 A ge:24 Y S ex:Female Address:[facility], [place], [address] * Refills Refill Lurasidone HCl Tablet, 40 MG, Orally, 30 Tablet, 1 tablet in the evening with food, Once a day, 30 days, Refills=2 * true * Date: Generated for Nelson raman/Karl/Alaina on: 0 02/05/2025 01:56 AM CDT
--- OUTSIDE RECORDS SUMMARY | 2025-02-05 01:57 | XMS_ITS ---
Author Organization [facility] Address [address] [place] [address] Care Team Providers Care Solvent Station Attendant Name Role Phone Guillaume San Primary Care Provider [phone] REASON FOR VISIT PA Dexmethylphenidate ER 35mg Social History Sex Assigned At : Social History Observation Description Sex Assigned At Female Encounters Encounter Location Date Provider Diagnosis [facility] [address] [place] [address] 01/01/2025 Guillaume San Plan Of Treatment No Information Progress Notes * John CHACONB: 0 (24 yo F)Acc No.[id number]:01/01/2025 Patient: Gordon BHATSarita CAM :2000 A ge:24 Y S ex:Female Address:[address] [place] [address], [address] * true * Date: Generated for Printi ng/Faxing/eTransmitting on: 0 02/05/2025 01:56 AM CDT
--- OUTSIDE RECORDS SUMMARY | 2025-02-05 01:57 | XMS_ITS | Patient Health Record ---
Author Organization [facility] Address [address] [place] [address] Care Team Providers Care Rubber Cutter And Shape Carver Name Role Phone Jaswinder Guillaume Primary Care Provider [phone] Anna Neal Unavailable [phone] Jessy Pearl Unavailable [phone] Allergies No Known Allergies Results Component Value Reference Range Notes 12 Panel Urine Drug Screen Reviewed date:10/17/2024 04:28:49 PM Interpretation: Performing Lab: Notes/Report: THC neg PETER neg MOP (OPI) neg AMP neg MET neg BAR neg BZO neg MDMA neg MTD neg OXY neg PCP neg BUP neg 12 Panel Urine Drug Screen Reviewed date:05/29/2024 08:06:56 AM Interpretation: Performing Lab: Notes/Report: THC p PETER n MOP (OPI) n AMP p MET n BAR n BZO n MDMA n MTD n OXY n PCP n BUP n Reason For Referral No Information Medications Medication [...] Problem Status W/U Status Risk Notes Problem 99038337 Bipolar II disorder (F31.81) 2 Active confirmed Problem 079756388 Irritable bowel syndrome with diarrhea (K58.0) Active confirmed Problem 65438181 ADHD (attention deficit hyperactivity disorder), combined type (F90.2) Active confirmed Problem 94065496 PTSD (post-traumatic stress disorder) (F43.10) Active confirmed Problem 64723815 Anxiety (F41.9) Active confirmed Problem Nicotine dependence (56657584) Nicotine dependence (F17.200) Active confirmed Problem 46052484 Bipolar affectiv e disorder, remission status unspecified (F31.9) Active confirmed Problem 27554216 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) Active confirmed Problem 895494712 Binge eating disorder (F50.81) Active confirmed Problem Obesity (032351016) Obesity, unspecified classification, unspecified obesity type, unspecified [...] 01/02/2025 Encounters Encounter Location Date Provider Diagnosis [address] [address] 02/15/2024 Anna Sanftleben Bipolar affective disorder, remission status unspecified F31.9 and Anxiety F41.[address] [address] 02/29/2024 Anna Sanftleben Bipolar affective disorder, remission status unspecified F31.9 and Anxiety F41.[address] [address] 03/14/2024 Anna Sanftleben Anxiety F41.9 and PTSD (post-traumatic stress disorder) F43.[address] [address] 04/01/2024 Guillaume San Bipolar II disorder F31.81 ; Anxiety F41.9 ; Binge eating disorder F50.81 and PTSD (post-traumatic stress disorder) F43.[address] [address] 04/29/2024 Guillaume San Bipolar II disorder F31.81 ; Binge eating disorder F50.81 ; PTSD (post-traumatic stress disorder) F43.10 and Anxiety F41.[address] [address] 05/23/2024 Guillaume San Medication monitorin g encounter Z51.81 ; Bipolar II disorder F31.81 ; Binge eating disorder F50.81 ; Anxiety F41.9 and PTSD (post-traumatic stress disorder) F43.[address] [address] 06/12/2024 Jessy Pearl Establishing care with new doctor, encounter for Z76.89 ; Screening for deficiency anemia Z13.0 ; Screening for metabolic disorder Z13.228 ; Screening for hyperlipidemia Z13.220 ; Binge eating disorder F50.81 ; Anxiety F41.9 ; Irritable bowel syndrome with diarrhea K58.0 ; Knee pain M25.569 ; Keratosis pilaris L85.8 and Rash R21 [address] [address] 06/18/2024 Guillaume San Bipolar II disorder F31.81 ; Binge eating disorder F50.81 ; PTSD (post-traumatic stress disorder) F43.10 and Anxiety F41.[address] [address] 08/13/2024 Guillaume San Bipolar II disorder F31.81 ; Binge eating disorder, moderate F50.811 ; Anxiety F41.9 and PTSD (post-traumatic stress disorder) F43.[address] [address] 10/17/2024 Guillaume San Bipolar II disorder F31.81 ; Anxiety F41.9 ; PTSD (post-traumatic stress disorder) F43.10 ; Binge eating disorder, moderate F50.811 and Medication monitoring encounter Z51.[address] [address] 01/01/2025 Guillaume San Bipolar II disorder F31.81 ; Anxiety F41.9 and Binge eating disorder, moderate F50.[facility] [address] [place] [address] 01/02/2025 Jessy Pearl Pilonidal cyst L05.9 1 and Nicotine dependence F17.[address] [place] [address] 03/21/2024 Guillaume San Binge eating disorde r F50.[address] [place] [address] 03/29/2024 Guillaume San [facility] [address] [address] 03/29/2024 Guillaume San Binge eating disorde r F50.[address] [place] [address] 04/03/2024 Guillaume San [facility] [address] [address] 05/13/2024 Guillaume San Binge eating disorde r F50.[address] [place] [address] 10/21/2024 Guillaume San Bipolar II disorder F31.81 [facility] [address] [address] 11/06/2024 Jessy Pearl Screening for deficiency anemia Z13.0 ; Screening for metabolic disorder Z13.228 ; Screening for thyroid disorder Z13.29 and Screening for hyperlipidemia Z13.[address] [place] [address] 12/26/2024 Guillaume San Bipolar II disorder F31.81 [facility] [address] [address] 12/26/2024 Guillaume San [facility] [address] [address] 01/01/2025 Guillaume San [address] [place] [address] 01/07/2025 Guillaume San Bipolar II disorder F31.[address] [place] [address] 05/24/2024 Guillaume San [address] [place] [address] 06/21/2024 Guillaume San Assessments Encounter Date Diagnosis (ICD Code) Assessment Notes Treatment Notes Treatment Clinical Notes Section Notes 02/15/2024 Bipolar affective disorder, remission status unspecified (ICD-10 - F31.9) Pt will continu e medications as prescribed and will continue therapy to develop goals and manage symptoms. 03/14/2024 Anxiety (ICD-10 - F41.9) Pt will continue medications as prescribed and will continue therapy to develop goals and manage symptoms. 03/21/2024 Binge eating disorder (ICD-10 - F50.81) 03/29/2024 Binge eating disorder (ICD-10 - F50.81) 04/01/2024 Bipolar II disorder (ICD-10 - F31.81) [...] treatment plan changes needed at this time. 02/29/2024 Bipolar affective disorder, remission status unspecified (ICD-10 - F31.9) Pt will continu e medications as prescribed and will continue therapy to develop goals and manage symptoms. 04/29/2024 Bipolar II disorder (ICD-10 - F31.81) Client with breakthrough binge eating behaviors on current dose of generic Focalin ER. Client agreeable to trial of 30 mg ER Focalin by adding 10 mg to her current dose of 20 mg for next week and then updating office. No other treatment plan changes needed. 05/13/2024 Binge eating disorder (ICD-10 - F50.81) 05/23/2024 Bipolar II disorder (ICD-10 - F31.81) [...] treatment plan changes at this visit. 06/12/2024 Establishing care with new doctor, encounter for (ICD-10 - Z76.89) 06/12/2024 Screening for deficiency anemia (ICD-10 - Z13.0) 06/18/2024 Bipolar II disorder (ICD-10 - F31.81) Client with improvements in mood/anger with decrease in venlafaxine and addition of Latuda. No changes in treatment plan currently. 08/13/2024 Bipolar II disorder (ICD-10 - F31.81) Client doing well, no treatment plan changes needed. 08/13/2024 Binge eating disorder, moderate (ICD-10 - F50.811) Client doing well, no treatment plan changes needed. 10/17/2024 Bipolar II disorder (ICD-10 - F31.81) [...] Encouraged client to re-engage. 11/06/2024 Screening for metabolic disorder (ICD-10 - Z13.228) 11/06/2024 Screening for deficiency anemia (ICD-10 - Z13.0) 12/26/2024 Bipolar II disorder (ICD-10 - F31.81) 01/01/2025 Bipolar II disorder (ICD-10 - F31.81) Client doing well, no changes to tx plan needed at this time. 01/01/2025 Anxiety (ICD-10 - F41.9) Client doing well, no changes to tx plan needed at this time. 10/21/2024 Bipolar II disorder (ICD-10 - F31.81) 01/02/2025 Nicotine dependence (ICD-10 - F17.200) 01/02/2025 Pilonidal cyst (ICD-10 - L05.91) 01/07/2025 Bipolar II disorder (ICD-10 - F31.81) 11/06/2024 Screening for thyroid disorder (ICD-10 - Z13.29) 01/01/2025 Binge eating disorder, moderate (ICD-10 - F50.811) Client doing well, no changes to tx plan needed at this time. 10/17/2024 PTSD (post-traumatic stress disorder) (ICD-10 - F43.10) Client with increased anger, binge eating, depressive symptoms including fatigue. Client agreeable to increased Focalin and Latuda and she requests a trial of trazodone discontinuation to see if helpful for her symptoms. She is working in therapy but hasn't gone in a while. Encouraged client to re-engage. 06/18/2024 Binge eating disorder (ICD-10 - F50.81) Client with improvements in mood/anger with decrease in venlafaxine and addition of Latuda. No changes in treatment plan currently. 08/13/2024 Anxiety (ICD-10 - F41.9) Client doing well, no treatment plan changes needed. 06/12/2024 Screening for metabolic disorder (ICD-10 - Z13.228) 05/23/2024 Binge eating disorder (ICD-10 - F50.81) Client is open to reduction of venlafaxine and adding Latuda to treatment plan to see if this reduces irriatbility and anger issues. No other treatment plan changes at this visit. 04/29/2024 Binge eating disorder (ICD-10 - F50.81) Client with breakthrough binge eating behaviors on current dose of generic Focalin ER. Client agreeable to trial of 30 mg ER Focalin by adding 10 mg to her current dose of 20 mg for next week and then updating office. No other treatment plan changes needed. 03/14/2024 PTSD (post-traumatic stress disorder) (ICD-10 - [...] treatment plan changes needed at this time. 02/29/2024 Anxiety (ICD-10 - F41.9) Pt will continue medications as prescribed and will continue therapy to develop goals and manage symptoms. 02/15/2024 Anxiety (ICD-10 - F41.9) Pt will continue medications as prescribed and will continue therapy to develop goals and manage symptoms. 04/01/2024 Binge eating disorder (ICD-10 - F50.81) [...] other treatment plan changes at this visit. 04/29/2024 PTSD (post-traumatic stress disorder) (ICD-10 - F43.10) Client with breakthrough binge eating behaviors on current dose of generic Focalin ER. Client agreeable to trial of 30 mg ER Focalin by adding 10 mg to her current dose of 20 mg for next week and then updating office. No other treatment plan changes needed. 06/12/2024 Screening for hyperlipidemia (ICD-10 - Z13.220) 08/13/2024 PTSD (post-traumatic stress disorder) (ICD-10 - F43.10) Client doing well, no treatment plan changes needed. 06/18/2024 PTSD (post-traumatic stress disorder) (ICD-10 - [...] a while. Encouraged client to re-engage. 10/17/2024 Medication monitoring encounter (ICD-10 - Z51.81) [...] Latuda. No changes in treatment plan currently. 06/12/2024 Binge eating disorder (ICD-10 - F50.81) 04/29/2024 Anxiety (ICD-10 - F41.9) Client with breakthrough binge eating behaviors on current dose of generic Focalin ER. Client agreeable to trial of 30 mg ER Focalin by adding 10 mg to her current dose of 20 mg for next week and then updating office. No other treatment plan changes needed. 05/23/2024 PTSD (post-traumatic stress disorder) (ICD-10 - F43.10) Client is open to reduction of venlafaxine and adding Latuda to treatment plan to see if this reduces irriatbility and anger issues. No other treatment plan changes at this visit. 04/01/2024 PTSD (post-traumatic stress disorder) (ICD-10 - [...] treatment plan changes needed at this time. 06/12/2024 Anxiety (ICD-10 - F41.9) 06/12/2024 Irritable [...] number to the 24-hour crisis line at [facility]. Questions addressed. Client verbalized understanding of [...] number to the 24-hour crisis line at [facility]. Questions addressed. Client verbalized understanding of [...] number to the 24-hour crisis line at [facility]. Questions addressed. Client verbalized understanding of [...] number to the 24-hour crisis line at [facility]. Questions addressed. Client verbalized understanding of [...] number to the 24-hour crisis line at [facility]. Questions addressed. Client verbalized understanding of [...] number to the 24-hour crisis line at [facility]. Questions addressed. Client verbalized understanding of [...] number to the 24-hour crisis line at [facility]. Questions addressed. Client verbalized understanding of all information and is agreeable to treatment plan. Client doing well, no changes to tx plan needed at this time. 01/02/2025 Other Patient may self-administ er their own medications or may self-administ er their own oral medications per [place] Protocol. Plan Of Treatment Pending Test Test [...] Insured Coverage Start Date Coverage End Date [facility] [address] [address] [place] [address] [id number] Sarita Chacon Self - patient is the insured 3 [employer] [address] [place] [address] [id number] Sarita Chacon Self - patient is the insured 4 4 [employer] [address] [place] [address] [id number] Sarita Chacon Self - patient is the insured 9 9 [employer] [address] [place] [address] [id number] Sarita Chacon Self - patient is the insured 1 1 [employer] [address] [place] [address] [id number] Sarita Chacon Self - patient is the insured 1 1 [employer] [facility] Telehealth [address] [place] [address] [id number] Sarita Chacon Self - patient is the insured 9 4 [employer] [address] [place] [address] [id number] Sarita Chacon Self - patient is the insured 4 4 Medical (General) History Medical History History ICD Code Bipolar affective disorder, remission st atus unspecified F31.9 Anxiety F41.9 irritable bowel syndrome with diarrhea Keratosis pilaris Surgical History Surgery Date(Month/Year) rhinoplasty belly button removal wisdom teeth removal Hospitalization History Reason Date(Month/Year)
--- OUTSIDE RECORDS SUMMARY | 2025-02-05 01:57 | XMS_ITS | Clinical Summary ---
Author Organization [facility]. Address [address] [place] [address] Care Team Providers Care Relief Manager Name Role Phone Rachael Duffy DO Primary Care Provider [phone] Source Comments [facility]non-owned Affiliates and Associated Physician Practices is amultiple site organization consisting of ambulatory clinics and hospital sitesin [place], [place], [place] and [place]. This disclosure is being madepursuant to the Care Everywhere program and may not contain all information available regarding this patient. Last updated 18.[facility]. Allergies No known active allergies Medications * [...] ativan. 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 Half life can be up to 91 hours. 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 With ativan [...] ativan. 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 Half life can be up to 91 hours. 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 With ativan overdose can see hypotension, respiratory depression, and bradycardia. We will monitor for these effects. EKG x2 have been normal, no further EKG needed. Pt is doing much better today, neuro exam unremarkable. Pt is medically stable and cleared for further evaluation by central intake, awaiting bed placement. Plan: - observation by public safety dispatcher and safety check room -diet regular -monitor I and O -VSq4 -consult to drug abuse social worker - Consult toxicology, reccs appreciated: per tox, [...] ativan. 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 Half life can be up to 91 hours. 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 With ativan overdose can see hypotension, respiratory depression, and bradycardia. We will monitor for these effects. EKG x2 have been normal, no further EKG needed. Pt is doing much better today, neuro exam unremarkable. Pt is medically stable and cleared for further evaluation by central intake, awaiting bed placement. Plan: - observation by public safety dispatcher and safety check room -diet regular -monitor I and O -VSq4 -consult to drug abuse social worker - Consult toxicology, reccs appreciated: per tox, [...] ativan. 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 Half life can be up to 91 hours. 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 With ativan overdose can see hypotension, respiratory depression, and bradycardia. We will monitor for these effects. EKG x2 have been normal, no further EKG needed. Pt is doing much better today, neuro exam unremarkable. Pt is medically stable, VSS, and tolerating PO. Plan: - observation by public safety dispatcher and safety check room -diet regular -monitor I and O -VSq4 -CR monitoring d/c 08/18 -continuous pulse ox d/c 08/18 -consult to drug abuse social worker - MIVF @ 100 mls/hr d/c and [...] ativan. 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 Half life can be up to 91 hours. 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 With ativan overdose can see hypotension, respiratory depression, and bradycardia. We will monitor for these effects. Plan: - observation by public safety dispatcher and safety check room -diet NPO -monitor I and O -VSq4 -CR monitoring -continuous pulse ox -consult to drug abuse social worker - MIVF @ 100 mls/hr - Repeat EKG completed in the AM - Consult toxicology, reccs appreciated -monitor for s/s hypotension, Serotonin syndrome, and vitals closely -UA pending Assessment & Plan (08/17/2017 3:02 AM CDT): Assessment: 17 y.o. F with history of anxiety and depression here with ingestion of trazodone, brexpiprazole, and ativan. 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 With ativan [...] 3:08 AM 08/22/2017 5:53 PM Care Teams Relief Manager Relationship Specialty Start Date End Date Rachael Duffy DO PCP - General Pediatrics 09/21/16
[2025-02-05 02:19] LABS: Troponin I < 0.012 ng/mL (0.000-0.034)
--- NOTE | 2025-02-05 02:57 | ED_ITS ---
HPI - Chest Pain General Chief Complaint: Chest Pain Stated Complaint: stabbing epigastric/chest pain Time Seen by Provider: 02/05/25 01:08 History of Present Illness HPI narrative: This is a 24 year old female with history of IBS, ADHD and Bipolar Disorder who presents to the emergency department complaining of intermittent sharp epigastric abdominal pain. This has been ongoing for the past month, occurring approximately 10 minutes after eating (typically spicy foods). It usually lasts 10 minutes. Today however, it lasted longer. It did not radiate and was associated with some nausea. She denies shortness of breath or loss of consciousness. She has no other complaints at this time. Related Data Home Medications ?Medication ?Instructions ?Recorded ?Confirmed ?Last Taken ?Type buspirone 10 mg tablet 10 mg PO TID 09/13/22 01/22/25 Unknown History lamotrigine 100 mg tablet 100 mg PO DAILY 09/13/22 01/22/25 Unknown History propranolol 10 mg tablet 10 mg PO Q12H 09/13/22 01/22/25 Unknown History trazodone 150 mg tablet 150 mg PO QHS PRN 09/13/22 01/22/25 Unknown History venlafaxine 150 mg 150 mg PO DAILY 09/13/22 01/22/25 Unknown History capsule,extended release 24 hr (Effexor XR) dexmethylphenidate 35 mg 35 mg PO DAILY 01/22/25 01/22/25 Unknown History capsule,extended release [id number] Allergies Allergy/AdvReac Type Severity Reaction Status Date / Time No Known Allergies Allergy Verified 02/04/25 22:32 Review of Systems 2 Review of Systems: All systems reviewed & are unremarkable except as noted in HPI and below PMFSH Past Medical History Medical History ADHD Encounter for screening colonoscopy Anxiety disorder IBS (irritable bowel syndrome) Bipolar disorder Surgical History Surgical History H/O endoscopy History of nasal surgery Social History Social History Smoking status: Current every day smoker Tobacco type: e-cigarettes/vaping Alcohol intake: never Substance use: current Substance use type: marijuana Last use: rarely Do You Feel Safe in your Home?: Yes Lack of Transportation: No Lack of Food: Never True Current Housing: I Have Housing Concerned About Future Housing: No Difficulty Paying Gas/Electric Bills: No Difficulty Paying for Meds: YES Currently Unemployed: No Education: High School Diploma/GED Difficulty w/ Childcare or Family Care: No Living arrangements: with family Occupation/Education: occupation 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 Mucous membranes moist. Oropharynx without tonsillar hypertrophy or exudate or other lesions. CHEST: Clear to auscultation. No respiratory distress. No wheezes, rales or rhonchi. HEART: Regular rate and rhythm. No murmur heard. normal peripheral pulses. ABDOMEN: Soft, nontender, nondistended, normoactive bowel sounds. EXTREMITIES: Normal range of motion. No edema. SKIN: Warm, dry, no rash. NEURO: No focal deficits. Alert and oriented x3. PSYCH: Normal mood and affect. Course Course Emergency Course: 02:37 - CBC demonstrates slightly elevated white blood cell count of 10.2 and mild anemia of hemoglobin 11.8 but is otherwise unremarkable. Chemistries demonstrate slightly elevated AST of 92 but is otherwise unremarkable. Coags within normal limits. Troponin negative x2. Lipase within normal limits. Chest x-ray unremarkable. EKG is not concerning for ischemia. Heart score. I suspect gastritis is the cause of patient's symptoms. Will give Protonix and p.o. challenge. The patient's exam is not concerning for acute abdomen. I had a shared decision-making conversation with her discussing the risks versus benefits of imaging verses a trial of PPI and primary care/GI follow-up. The patient elected the latter. Vital Signs Vital signs: Vital Signs Temperature 98.4 F 02/04/25 22:36 Pulse Rate 87 02/04/25 22:36 Respiratory Rate 16 02/04/25 22:36 Blood Pressure 143/77 H 02/04/25 22:36 Pulse Oximetry 100 02/04/25 22:36 Oxygen Delivery Room Air 02/04/25 22:36 Temperature 98.4 F 02/04/25 22:36 Pulse Rate 64 02/05/25 03:15 Respiratory Rate 13 02/05/25 03:15 Blood Pressure 126/86 02/05/25 03:15 Pulse Oximetry 99 02/05/25 03:15 Oxygen Delivery Room Air 02/05/25 01:01 MDM - Chest Pain MDM Narrative Medical decision making narrative: Plan: Labs, imaging, pain control, EKG, troponin, reassess Differential Diagnosis Differential diagnosis: Likely pneumothorax, costochondritis and other (ACS, GERD, peptic ulcer disease, pancreatitis, bowel perforation, cholecystitis, metabolic abnormality, other) Lab Data 02/04/25 22:40 02/04/25 22:40 Labs: Lab Results 02/04/25 02/05/25 Range/Units 22:40 01:53 WBC 10.2 H (4.5-10.0) K/mm3 RBC 4.11 L (4.2-5.4) M/mm3 Hgb 11.8 L (12.0-15.0) g/dL Hct 36.1 L (37.0-47.0) % MCV 87.8 (80-100) fl MCH 28.7 (26-34) pg MCHC 32.7 (32-36) g/dl RDW 11.9 (11.5-14.5) % Plt Count 362 (150-375) k/mm3 MPV 8.9 (7.4-10.4) fl Immature Gran % (Auto) 0.4 (0-0.5) % Neut % (Auto) 52.8 (45.5-73.1) % Lymph % (Auto) 35.9 (18.3-44.2) % Cache % (Auto) 7.5 (2.6-8.5) % Eos % (Auto) 2.9 (0-4.4) % Baso % (Auto) 0.5 (0.2-1.2) % Lymph # (Auto) 3.66 H (0.9-3.2) K/mm3 Cache # (Auto) 0.8 H (0.1-0.6) K/mm3 Eos # (Auto) 0.3 (0-0.3) K/mm3 Baso # (Auto) 0.1 (0.0-0.1) K/mm3 Abs Immat Gran (auto) 0.04 H (0.00-0.031) K/mm3 Absolute Neuts (auto) 5.4 (1.3-6.7) K/mm3 Absolute Nucleated RBC 0.000 (0.0-0.012) K/mm3 Nucleated RBC % 0.0 (0.0-0.2) % PT 13.6 (11.1-14.7) Seconds INR 1.0 APTT 27.5 (22.3-36.8) Seconds Sodium 138 (137-145) mmol/L Potassium 4.1 (3.4-5.0) mmol/L Chloride 102 (98-107) mmol/L Carbon Dioxide 27 (22-30) mmol/L Anion Gap 9 (4-12) mmol/L BUN 12 (7-17) mg/dL Creatinine 0.99 (0.7-1.0) mg/dL Estim Creat Clear Calc 93 ml/min Estimated GFR > 60 (59 - ) Glucose 103 (65-110) mg/dL Calcium 9.5 (8.4-10.2) mg/dL Total Bilirubin 0.4 (0.2-1.3) mg/dL AST 92 H (14-36) U/L ALT 34 (6-35) U/L Alkaline Phosphatase 104 (38-126) U/L Troponin I < 0.012 < 0.012 (0.000-0.034) ng/mL Total Protein 7.0 (6.3-8.2) g/dL Albumin 4.4 (3.5-5.1) g/dL Lipase 66 (23-300) U/L ECG Data EKG #1: Attestation: I personally reviewed and interpreted this ECG as follows: ECG completion date: 02/04/25 ECG completion time: 22:46 Prior ECG tracings: available for review Interpretation: Sinus rhythm, rate 93, normal axis, no ST segment elevations or T-wave inversions concerning for ischemia, normal intervals with QTC of 423. Compared to EKG done in 2020, there are no significant changes. EKG #2: Attestation: I personally reviewed and interpreted this ECG as follows: ECG completion date: 02/05/25 ECG completion time: 01:48 Prior ECG tracings: available for review Interpretation: Sinus rhythm, rate 72, normal axis, no ST segment elevations or T-wave inversions concerning for ischemia, normal intervals with QTC of 411. Discharge Plan Discharge Clinical Impression: Abdominal pain, epigastric Gastritis Qualifiers: Gastritis type: unspecified gastritis Chronicity: acute Gastritis bleeding: w ithout bleeding Qualified Code(s): K29.00 - Acute gastritis without bleeding Patient Disposition: Home Condition: Stable Instructions: Antibiotic Form, Chest Pain (ED), Gastritis (ED) Additional Instructions: You were seen in the emergency department. Your labs and EKG were not concerning for injury to the heart. Your exam is reassuring. I suspect her symptoms are related to gastritis. I recommend a course of acid blocking medications and follow-up with your primary care doctor. I recommend discussing evaluation by a marine technician. If you develop new or worsening abdominal pain, abdominal pain with fevers, persistent vomiting, or if you have other emergent concerns for life, limb, or eyesight, return to the emergency department. Patient Language: Senegalese Prescriptions: New omeprazole 40 mg capsule,delayed release(DR/EC) 40 mg PO DAILY Qty: 60 0RF No Action venlafaxine [Effexor XR] 150 mg capsule,extended release 24hr 150 mg PO DAILY buspirone 10 mg tablet 10 mg PO TID propranolol 10 mg tablet 10 mg PO Q12H lamotrigine 100 mg tablet 100 mg PO DAILY trazodone 150 mg tablet 150 mg PO QHS PRN dexmethylphenidate 35 mg capsule,ER biphasic 50-50 35 mg PO DAILY drospirenone-ethinyl estradiol [Shila] 3-0.03 mg tablet 1 tablet PO DAILY Qty: 112 4RF Rx Instructions: take in a continuous manner to skip cycles Follow-up/Referrals: Short,Jessy Banda NP [Primary Care Provider] - 2 Weeks Time of Disposition: 03:02
[2025-02-05] MEDS: PANTOPRAZOLE 40 MG TABLET PO (03:00)
[2025-02-05 03:15] VITALS: BP 126/86; PULSE 64; RESP 13; O2SAT 99
== END 2025-02-05 04:03 | disposition home or self-care (01) ==
PROVIDERS: Emergency Provider Preventive Medicine Aerospace Medicine; PCP Nurse Practitioner Family
DX: K29.00 Acute gastritis without bleeding (principal); F90.9 Attention-deficit hyperactivity disorder, unspecified type; F41.9 Anxiety disorder, unspecified; F31.9 Bipolar disorder, unspecified; K58.9 Irritable bowel syndrome, unspecified
CPT/HCPCS: 36415; 71046; 80053; 83690; 84484; 85025; 85610; 85730; 93005; 99284; A9270

== ENCOUNTER 2025-05-01 14:45 | Outpatient (CLI) | payer OTHER, SELFPAY ==
--- NOTE | ~2025-05-01 | US_ITS ---
RIGHT UPPER QUADRANT ABDOMINAL ULTRASOUND (Doppler ultrasound interrogation techniques used as needed for this exam.) Ordering provider: Harrison Mosley MD History: . RUQ Pain . Comparison: None. FINDINGS: PANCREAS: Normal echotexture and size. PORTAL VEIN: Hepatopedal flow demonstrated. LIVER: Hepatomegaly with coarse echotexture.. No focal hepatic lesions or perihepatic fluid collectio ns are identified. BILIARY DUCTS: No intra or extrahepatic biliary dilation. Common bile duct measures 4 mm in diameter which is normal for patient's age. GALLBLADDER: Cholelithiasis. No sludge, gallbladder wall thickening or pericholecystic fluid. Wall th ickness is 2.3 mm. Negative sonographic Holly's sign. IVC: Normal. Abdominal aorta: Normal. FREE FLUID: None visualized within the upper abdomen. IMPRESSION: Cholelithiasis. Hepatomegaly with fat infiltration. Otherwise, normal right upper quadrant ultrasound . Reviewed, dictated and finalized at location A. IMPRESSION: Cholelithiasis. Hepatomegaly with fat infiltration. Otherwise, normal right upp er quadrant ultrasound.
--- OUTSIDE RECORDS SUMMARY | 2025-05-01 14:50 | XMS_ITS | Clinical Summary ---
Author Organization [facility] Address [address] [place] [address] Care Team Providers Care Paleology Teacher Name Role Phone Rachael Duffy DO Primary Care Provider [phone] Source Comments [facility]non-owned Affiliates and Associated Physician Practices is amultiple site organization consisting of ambulatory clinics and hospital sitesin [place], [place], [place] and [place]. This disclosure is being madepursuant to the Care Everywhere program and may not contain all information available regarding this patient. Last updated 18.[facility] Allergies No known active allergies Medications * This document contains information received from the source organization and may not represent a complete record from that organization. * Be aware that medications may not be up to date on this document. Alwaysverify current medications with the patient. venlafaxine (EFFEXOR) 100 MG tablet Take 100 [...] ativan. 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 Half life can be up to 91 hours. 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 With ativan [...] ativan. 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 Half life can be up to 91 hours. 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 With ativan overdose can see hypotension, respiratory depression, and bradycardia. We will monitor for these effects. EKG x2 have been normal, no further EKG needed. Pt is doing much better today, neuro exam unremarkable. Pt is medically stable and cleared for further evaluation by central intake, awaiting bed placement. Plan: - observation by safety belt installer and safety check room -diet regular -monitor I and O -VSq4 -consult to social services coordinator - Consult toxicology, reccs appreciated: per tox, [...] ativan. 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 Half life can be up to 91 hours. 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 With ativan overdose can see hypotension, respiratory depression, and bradycardia. We will monitor for these effects. EKG x2 have been normal, no further EKG needed. Pt is doing much better today, neuro exam unremarkable. Pt is medically stable and cleared for further evaluation by central intake, awaiting bed placement. Plan: - observation by safety belt installer and safety check room -diet regular -monitor I and O -VSq4 -consult to social services coordinator - Consult toxicology, reccs appreciated: per tox, pt is at low risk for symptoms secondary to ingestion at this time. Due to her NUNEZ, tox is OK to start home dose of effexor (300mg) once a day. -tylenol and motrin PRN for NUNEZ -monitor for s/s hypotension, Serotonin syndrome, and vitals closely -Central intake contacted 08/18 -[facility] consult placed 08/18 Assessment & Plan (08/18/2017 2:08 PM CDT): Assessment: 17 y.o. F with history of anxiety and depression here with ingestion of trazodone, brexpiprazole, and ativan. 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 Half life can be up to 91 hours. 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 With ativan overdose can see hypotension, respiratory depression, and bradycardia. We will monitor for these effects. EKG x2 have been normal, no further EKG needed. Pt is doing much better today, neuro exam unremarkable. Pt is medically stable, VSS, and tolerating PO. Plan: - observation by safety belt installer and safety check room -diet regular -monitor I and O -VSq4 -CR monitoring d/c 08/18 -continuous pulse ox d/c 08/18 -consult to social services coordinator - MIVF @ 100 mls/hr d/c and [...] ativan. 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 Half life can be up to 91 hours. 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 With ativan overdose can see hypotension, respiratory depression, and bradycardia. We will monitor for these effects. Plan: - observation by safety belt installer and safety check room -diet NPO -monitor I and O -VSq4 -CR monitoring -continuous pulse ox -consult to social services coordinator - MIVF @ 100 mls/hr - Repeat EKG completed in the AM - Consult toxicology, reccs appreciated -monitor for s/s hypotension, Serotonin syndrome, and vitals closely -UA pending Assessment & Plan (08/17/2017 3:02 AM CDT): Assessment: 17 y.o. F with history of anxiety and depression here with ingestion of trazodone, brexpiprazole, and ativan. 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 With ativan overdose can see hypotension, respiratory depression, and bradycardia. We will monitor for these effects. Plan: - Admit to TCU for close monitoring of cardiorespiratory status - MIVF - Repeat EKG in AM - Consult toxicology Immunizations Immunization Administration Dates Next Due INFLUENZA VACCINE, QUADR. 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
--- OUTSIDE RECORDS SUMMARY | 2025-05-01 14:50 | XMS_ITS | Patient Health Record ---
Author Organization [facility] Address [address] [place] [address] Care Team Providers Care Automatic Vulcanizing Operator Name Role Phone Jaswinder Gulilaume Primary Care Provider Harrison Mosley Unavailable [phone] Jessy Pearl Unavailable [phone] Allergies No Known Allergies Results Component Value [...] HCl 40 MG 1 tablet Twice a day; Duration: 30 days Active Venlafaxine HCl ER 150 mg 1 capsule with food Once a day; Duration: 30 days Active busPIRone HCl 15 MG 2 tablets in am, 1 tablet in pm Twice a day; Duration: 30 days Active traZODone HCl 150 MG 0.5 tablet as neede d at bedtime Orally Once a day; Duration: 30 days Active Lurasidone HCl 40 MG 1 tablet in the evening with food Orally Once a day; Duration: 30 days 05/24/2024 Active Triamcinolone Acetonide 0.1 % 1 application Externally Two times a Week; Duration: 30 days 06/12/2024 Active lamoTRIgine 150 MG 1 tablet Once a day; Duration: 30 days Active Shila 3-0.03 MG 1 tablet Orally Once a day; Duration: 28 day(s) Active Dexmethylphenidate HCl ER 35 MG 1 capsule in the morning Orally Once a day. Please fill on or after January 27, 2025.; Duration: 30 days 01/01/2025 Active Nicotine Polacrilex 4 MG 1 piece chew for 30 minutes as needed Mouth/Throat every 1-2 hours; Duration: 30 days As needed 01/02/2025 Active Ketoconazole 2 % as directed Externally Once a day; Duration: 30 days 12/15/2022 Not-Taking Dexmethylphenidate HCl ER 35 MG 1 capsule in the morning Orally Once a day.; Duration: 30 days 04/21/2025 Active Dexmethylphenidate HCl ER 35 MG 1 capsule in the morning Orally Once a day. Please fill on or after May 16, 2025.; Duration: 30 days 04/21/2025 Active Immunizations Vaccine Route Administration Date Status Comme nts COVID-19 Moderna Booster IM Intramuscular 12/16/2021 Administered patient tolerat ed well, denies any questions or concerns at this time. FLU VAC NO PRSV 4VAL 6 mo+ IM Intramuscular 07/25/2022 Administered Pt tolerated injection well. Pt voiced no question or concern. Social History Tobacco Use: Social History Observation [...] Problem Status W/U Status Risk Notes Problem Bipolar II disorder (38232276) Bipolar II disorder (F31.81) 08/31/20 22 Active confirmed Problem Irritable bowel syndrome with diarrhea (736689587) Irritable bowel syndrome with diarrhea (K58.0) Active confirmed Problem Attention deficit hyperactivity disorder (012630784) ADHD (attention deficit hyperactivity disorder), combined type (F90.2) Active confirmed Problem Posttraumatic stress disorder (48985779) PTSD (post-traumatic stress disorder) (F43.10) Active confirmed Problem Anxiety (54358310) Anxiety (F41.9) Active confirmed Problem Overweight (546479888) Over weight (E66.3) Active confirmed Problem Nicotine dependence (53026366) Nicotine dependence (F17.200) Active confirmed Problem Bipolar disorder (64032818) Bipolar affective disorder, remission status unspecified (F31.9) 08/31/20 22 Active confirmed Problem Obsessive-compuls jayden disorder (345357424) Mixed obsessional thoughts and acts (F42.2) Active confirmed Problem Binge eating disorder (954658199) Binge eating disorder (F50.81) Active confirmed Problem Obesity (203899581) Obesity, unspecified classification, unspecified obesity type, unspecified whether serious comorbidity present (E66.9) Active confirmed Vital Signs Heart Rate 87 /min 05/01/2025 Temperature 98.5 degrees Fahrenheit 01/02/2025 Respiratory Rate 16 /min 05/01/2025 Blood pressure diastolic 70 mm Hg 05/01/2025 Oximetry 98 % 05/01/2025 Height 66 in 05/01/2025 Blood pressure systolic 100 mm Hg 05/01/2025 Weight 225.6 lbs 05/01/2025 BMI 36.41 kg/m2 05/01/2025 Encounters Encounter Location Date Provider Diagnosis [address] [place] [address] 05/01/2025 Harrison Mosley Right upper quadrant abdominal pain R10.[address] [place] [address] 05/23/2024 Guillaume San Medication monitorin g encounter Z51.81 ; Bipolar II disorder F31.81 ; Binge eating disorder F50.81 ; Anxiety F41.9 and PTSD (post-traumatic stress disorder) F43.[address] [place] [address] 06/12/2024 Jessy Pearl [facility] new doctor, encounter for Z76.89 ; Screening for deficiency anemia Z13.0 ; Screening for metabolic disorder Z13.228 ; Screening for hyperlipidemia Z13.220 ; Binge eating disorder F50.81 ; Anxiety F41.9 ; Irritable bowel syndrome with diarrhea K58.0 ; Knee pain M25.569 ; Keratosis pilaris L85.8 and Rash R21 [address] [address] 06/18/2024 Guillaume San Bipolar II disorder F31.81 ; Binge eating disorder F50.81 ; PTSD (post-traumatic stress disorder) F43.10 and Anxiety F41.[address] [address] 08/13/2024 Guillaume San Bipolar II disorder F31.81 ; Binge eating disorder, moderate F50.811 ; Anxiety F41.9 and PTSD (post-traumatic stress disorder) F43.[address] [address] 10/17/2024 Guillaume San Bipolar II disorder F31.81 ; Anxiety F41.9 ; PTSD (post-traumatic stress disorder) F43.10 ; Binge eating disorder, moderate F50.811 and Medication monitoring encounter Z51.[address] [address] 01/01/2025 Guillaume San Bipolar II disorder F31.81 ; Anxiety F41.9 and Binge eating disorder, moderate F50.811 [address] [place] [address] 01/02/2025 Jessy Pearl Pilonidal cyst L05.9 1 and Nicotine dependence F17.200 [address] [place] [address] 02/06/2025 Jessy Pearl Over weight E66.3 ; Epigastric abdominal pain R10.13 and Elevated liver enzymes R74.[address] [place] [address] 04/21/2025 Guillaume San Bipolar II disorder F31.81 ; Anxiety F41.9 and Binge eating disorder, moderate F50.[address] [address] 04/24/2025 Guillaume San [facility] [address], [place] [address] 05/13/2024 Guillaume San Binge eating disorde r F50.[address] [place] [address] 10/21/2024 Guillaume San Bipolar II disorder F31.81 [facility] [address], [place] [address] 11/06/2024 Jessy Pearl Screening for deficiency anemia Z13.0 ; Screening for metabolic disorder Z13.228 ; Screening for thyroid disorder Z13.29 and Screening for hyperlipidemia Z13.[address] [place] [address] 12/26/2024 Guillaume San Bipolar II disorder F31.81 [facility] [address] [place] [address] 12/26/2024 Guillaume San [facility] [address] [place] [address] 01/01/2025 Guillaume San [address] [place] [address] 01/07/2025 Guillaume San Bipolar II disorder F31.[address] [place] [address] 04/04/2025 Guillaume San Bipolar II disorder F31.81 ; Anxiety F41.9 and Binge eating disorder, moderate F50.[address] [place] [address] 04/17/2025 Guillaume San [address] [place] [address] 05/24/2024 Guillaume San [address] [place] [address] 06/21/2024 Guillaume San Assessments Encounter Date Diagnosis (ICD Code) Assessment Notes Treatment Notes Treatment Clinical Notes Section Notes 05/01/2025 Right upper quadrant abdominal pain (ICD-10 - R10.11) SUSPECT CHOLECYSTITIS , POSSIBLE CONCURRENT GASTRITIS/AVINASH D/PUD. TO HAVE RUQ U/S DONE AT [facility] AT 3 PM TODAY. FAST UNTIL THEN. 10/21/2024 Bipolar II disorder (ICD-10 - F31.81) 04/21/2025 Bipolar II disorder (ICD-10 - F31.81) 04/21/2025 Anxiety (ICD-10 - F41.9) 08/13/2024 Binge eating disorder, moderate (ICD-10 - [...] tx plan needed at this time. 01/02/2025 Nicotine dependence (ICD-10 - F17.200) 01/02/2025 Pilonidal cyst (ICD-10 - L05.91) 01/07/2025 Bipolar II disorder (ICD-10 - F31.81) 02/06/2025 Over weight (ICD-10 - E66.3) 02/06/2025 Epigastric abdominal pain (ICD-10 - R10.13) 04/04/2025 Bipolar II disorder (ICD-10 - F31.81) 05/13/2024 Binge eating disorder (ICD-10 - F50.81) [...] well, no treatment plan changes needed. 06/18/2024 Binge eating disorder (ICD-10 - F50.81) [...] other treatment plan changes at this visit. 04/04/2025 Anxiety (ICD-10 - F41.9) 02/06/2025 Elevated liver enzymes (ICD-10 - R74.8) 01/01/2025 Binge eating disorder, moderate (ICD-10 - [...] in a while. Encouraged client to re-engage. 04/21/2025 Binge eating disorder, moderate (ICD-10 - F50.811) 11/06/2024 Screening for thyroid disorder (ICD-10 - Z13.29) 11/06/2024 Screening for hyperlipidemia (ICD-10 - Z13.220) 10/17/2024 Binge eating disorder, moderate (ICD-10 - F50.811) Client with increased anger, binge eating, depressive symptoms including fatigue. Client agreeable to increased Focalin and Latuda and she requests a trial of trazodone discontinuation to see if helpful for her symptoms. She is working in therapy but hasn't gone in a while. Encouraged client to re-engage. 04/04/2025 Binge eating disorder, moderate (ICD-10 - F50.811) 05/23/2024 Anxiety (ICD-10 - F41.9) Client is open to reduction of venlafaxine and adding Latuda to treatment plan to see if this reduces irriatbility and anger issues. No other treatment plan changes at this visit. 06/12/2024 Screening for hyperlipidemia (ICD-10 - Z13.220) 08/13/2024 PTSD (post-traumatic stress disorder) (ICD-10 - F43.10) Client doing well, no treatment plan changes needed. 06/18/2024 PTSD (post-traumatic stress disorder) (ICD-10 - F43.10) Client with improvements in mood/anger with decrease in venlafaxine and addition of Latuda. No changes in treatment plan currently. 06/18/2024 Anxiety (ICD-10 - F41.9) Client with improvements in mood/anger with decrease in venlafaxine and addition of Latuda. No changes in treatment plan currently. 06/12/2024 Binge eating disorder (ICD-10 - F50.81) 05/23/2024 PTSD (post-traumatic stress disorder) (ICD-10 - F43.10) Client is open to reduction of venlafaxine and adding Latuda to treatment plan to see if this reduces irriatbility and anger issues. No other treatment plan changes at this visit. 10/17/2024 Medication monitoring encounter (ICD-10 - Z51.81) Client with increased anger, binge eating, depressive symptoms including fatigue. Client agreeable to increased Focalin and Latuda and she requests a trial of trazodone discontinuation to see if helpful for her symptoms. She is working in therapy but hasn't gone in a while. Encouraged client to re-engage. 06/12/2024 Anxiety (ICD-10 - F41.9) 06/12/2024 Irritable [...] too harsh. 06/12/2024 Rash (ICD-10 - R21) 05/01/2025 Other [place] 05/23/2024 [place] [...] number to the 24-hour crisis line at [facility]. Questions addressed. Client verbalized understanding of all [...] number to the 24-hour crisis line at [facility]. Questions addressed. Client verbalized understanding of all [...] number to the 24-hour crisis line at [facility]. Questions addressed. Client verbalized understanding of all [...] number to the 24-hour crisis line at [facility]. Questions addressed. Client verbalized understanding of all [...] number to the 24-hour crisis line at [facility]. Questions addressed. Client verbalized understanding of all information and is agreeable to treatment plan. Client doing well, no changes to tx plan needed at this time. 01/02/2025 Other Patient may self-administ er their own medications or may self-administ er their own oral medications per [facility] Protocol. 04/21/2025 [place]. [...] number to the 24-hour crisis line at [facility]. Questions addressed. Client verbalized understanding of all information and is agreeable to treatment plan. Plan Of Treatment Pending Test Test Name Order Date TSH* 07/25/2022 CBC With Differential/Platelet* 07/25/20 22 Vitamin D, 25-Hydroxy* 07/25/2022 CMP 14 Comprehensive Metabolic Panel* Future Test Test Name Order Date Ultrasound : Right Upper Quadrant 2024 Insurance Providers Payer Name Payer Address Payer Phone Subscriber Number Group Number Insured Name Patient Relationship to Insured Coverage Start Date Coverage End Date [facility] [employer] [address] [address] [place] [address] [id number] OswaldoSarita Self - patient is the insured 3 [employer] [facility] [address] [place] [address] [id number] Oswaldo Sarita Self - patient is the insured 4 4 [employer] [address] [place] [address] [id number] Oswaldo Sarita Self - patient is the insured 9 9 [facility] Claims Department [address] [place] [address] [id number] Oswaldo Sarita Self - patient is the insured 5 [employer] [address] [place] [address] [id number] Oswaldo Sarita Self - patient is the insured 1 1 [employer] [address] [place] [phone] [id number] Oswaldo Sarita Self - patient is the insured 1 1 [employer] [facility] [employer] [address] [place] [address] [id number] Oswaldo Sarita Self - patient is the insured 9 4 [employer] [address] [place] [phone] [id number] Oswaldo Sarita Self - patient is the insured 4 4 Medical (General) History Medical History History ICD Code Bipolar affective disorder, remission st atus unspecified F31.9 Anxiety F41.9 irritable bowel syndrome with diarrhea Keratosis pilaris Surgical History Surgery Date(Month/Year) rhinoplasty belly button removal wisdom teeth removal Hospitalization History Reason Date(Month/Year)
== END 2025-05-01 14:46 | disposition home or self-care (01) ==
PROVIDERS: PCP Internal Medicine; Visit Provider Internal Medicine
DX: K80.20 Calculus of gallbladder without cholecystitis without obstruction (principal); K76.0 Fatty (change of) liver, not elsewhere classified
CPT/HCPCS: 76705

== ENCOUNTER 2025-05-16 11:42 | Outpatient (CLI) | payer OTHER, SELFPAY ==
--- OUTSIDE RECORDS SUMMARY | 2025-05-16 11:48 | XMS_ITS | Clinical Summary ---
Author Organization [facility] Address [address] [place] [address] Care Team Providers Care Wildlife Photographer Name Role Phone Rachael Duffy DO Primary Care Provider [phone] Source Comments [facility],non-owned Affiliates and Associated Physician Practices is amultiple site organization consisting of ambulatory clinics and hospital sitesin [place], [place], [place] and [place]. This disclosure is being madepursuant to the Care Everywhere program and may not contain all information available regarding this patient. Last updated 18.[facility] Allergies No known active allergies Medications * [...] ativan. With brexpiprazole can see extrapyramidal symptoms, TAKER OFF DRYING KILN depression, hypotension. Half life can be up to 91 hours. With trazodone can see QT prolongation, TAKER OFF DRYING KILN depression, hypotension, and serotonin syndrome. With ativan [...] ativan. With brexpiprazole can see extrapyramidal symptoms, TAKER OFF DRYING KILN depression, hypotension. Half life can be up to 91 hours. With trazodone can see QT prolongation, TAKER OFF DRYING KILN depression, hypotension, and serotonin syndrome. With ativan overdose can see hypotension, respiratory depression, and bradycardia. We will monitor for these effects. EKG x2 have been normal, no further EKG needed. Pt is doing much better today, neuro exam unremarkable. Pt is medically stable and cleared for further evaluation by central intake, awaiting bed placement. Plan: - observation by industrial safety and health technician and safety check room -diet regular -monitor I and O -VSq4 -consult to social problems specialist - Consult toxicology, reccs appreciated: per tox, [...] ativan. With brexpiprazole can see extrapyramidal symptoms, TAKER OFF DRYING KILN depression, hypotension. Half life can be up to 91 hours. With trazodone can see QT prolongation, TAKER OFF DRYING KILN depression, hypotension, and serotonin syndrome. With ativan overdose can see hypotension, respiratory depression, and bradycardia. We will monitor for these effects. EKG x2 have been normal, no further EKG needed. Pt is doing much better today, neuro exam unremarkable. Pt is medically stable and cleared for further evaluation by central intake, awaiting bed placement. Plan: - observation by industrial safety and health technician and safety check room -diet regular -monitor I and O -VSq4 -consult to social problems specialist - Consult toxicology, reccs appreciated: per tox, [...] ativan. With brexpiprazole can see extrapyramidal symptoms, TAKER OFF DRYING KILN depression, hypotension. Half life can be up to 91 hours. With trazodone can see QT prolongation, TAKER OFF DRYING KILN depression, hypotension, and serotonin syndrome. With ativan overdose can see hypotension, respiratory depression, and bradycardia. We will monitor for these effects. EKG x2 have been normal, no further EKG needed. Pt is doing much better today, neuro exam unremarkable. Pt is medically stable, VSS, and tolerating PO. Plan: - observation by industrial safety and health technician and safety check room -diet regular -monitor I and O -VSq4 -CR monitoring d/c 08/18 -continuous pulse ox d/c 08/18 -consult to social problems specialist - MIVF @ 100 mls/hr d/c and [...] ativan. With brexpiprazole can see extrapyramidal symptoms, TAKER OFF DRYING KILN depression, hypotension. Half life can be up to 91 hours. With trazodone can see QT prolongation, TAKER OFF DRYING KILN depression, hypotension, and serotonin syndrome. With ativan overdose can see hypotension, respiratory depression, and bradycardia. We will monitor for these effects. Plan: - observation by industrial safety and health technician and safety check room -diet NPO -monitor I and O -VSq4 -CR monitoring -continuous pulse ox -consult to social problems specialist - MIVF @ 100 mls/hr - Repeat EKG completed in the AM - Consult toxicology, reccs appreciated -monitor for s/s hypotension, Serotonin syndrome, and vitals closely -UA pending Assessment & Plan (08/17/2017 3:02 AM CDT): Assessment: 17 y.o. F with history of anxiety and depression here with ingestion of trazodone, brexpiprazole, and ativan. With brexpiprazole can see extrapyramidal symptoms, TAKER OFF DRYING KILN depression, hypotension. With trazodone can see QT prolongation, TAKER OFF DRYING KILN depression, hypotension, and serotonin syndrome. 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
--- OUTSIDE RECORDS SUMMARY | 2025-05-16 11:48 | XMS_ITS | Patient Health Record ---
Author Organization [facility] Address [address] [place] [address] Care Team Providers Care Interceptor Operator Name Role Phone Harrison Mosley Primary Care Provider Guillaume San Unavailable [phone] Jessy Pearl Unavailable [phone] Allergies No Known Allergies Results Component Value Reference Range Notes Ultrasound : Right Upper Guero drjet Reviewed date:05/08/2025 07:25:56 AM Interpretation: Performing Lab: Notes/Report: 12 Panel Urine Drug Screen Reviewed date:05/29/2024 [...] PCP neg BUP neg Reason For Referral Reason CHOLELITHIASIS, RUQ PAIN INTERMITTENTLY FOR A FEW MONTHS, LIKELY NEEDS CHOLECYSTECTOMY Diagnosis 1 Right upper quadrant abdominal pain (R10.11) Referral Organization [facility] Referring Provider First Name Harrison Referring Provider Last Name Melany Referring Provider Speciality Internal M edicine Referred Provider Specialty Surgery General Notes Lana Johnson RN 05/01/2025 04:38:25 PM > Referral to [facility] Surgery. Letter to Patient. Clinical Notes [facility] up-Pulmonology , [address] [address] [address], [facility] [address], Referral Priority Urgent Medications Medication SIG (Take, Route, Frequency, Duration) [...] Status Risk Notes Problem Bipolar II disorder (40422468) Bipolar II disorder (F31.81) 08/31/20 22 Active confirmed Problem Irritable bowel syndrome with diarrhea (166486540) Irritable bowel syndrome with diarrhea (K58.0) Active confirmed Problem Attention deficit hyperactivity disorder (701846250) ADHD (attention deficit hyperactivity disorder), combined type (F90.2) Active confirmed Problem Posttraumatic stress disorder (67893012) PTSD (post-traumatic stress disorder) (F43.10) Active confirmed Problem Anxiety (43432105) Anxiety (F41.9) Active confirmed Problem Overweight (448124527) Over weight (E66.3) Active confirmed Problem Nicotine dependence (31653744) Nicotine dependence (F17.200) Active confirmed Problem Bipolar disorder (07527297) Bipolar affective disorder, remission status unspecified (F31.9) 08/31/20 22 Active confirmed Problem Obsessive-compuls jayden disorder (644653860) Mixed obsessional thoughts and acts (F42.2) Active confirmed Problem Binge eating disorder (402340663) Binge eating disorder (F50.81) Active confirmed Problem Obesity (113495162) Obesity, unspecified classification, unspecified obesity type, unspecified [...] 05/01/2025 Encounters Encounter Location Date Provider Diagnosis [address] [place] [address] 05/23/2024 Guillaume San Medication monitorin g encounter Z51.81 ; Bipolar II disorder F31.81 ; Binge eating disorder F50.81 ; Anxiety F41.9 and PTSD (post-traumatic stress disorder) F43.[address] [address] 06/12/2024 Jessy Pearl Establishing care wi th new doctor, encounter for Z76.89 ; Screening for deficiency anemia Z13.0 ; Screening for metabolic disorder Z13.228 ; Screening for hyperlipidemia Z13.220 ; Binge eating disorder F50.81 ; Anxiety F41.9 ; Irritable bowel syndrome with diarrhea K58.0 ; Knee pain M25.569 ; Keratosis pilaris L85.8 and Rash R21 [address] [address] 06/18/2024 Guillaume San Bipolar II disorder F31.81 ; Binge eating disorder F50.81 ; PTSD (post-traumatic stress disorder) F43.10 and Anxiety F41.[address] [address] 08/13/2024 Guillaume San Bipolar II disorder F31.81 ; Binge eating disorder, moderate F50.811 ; Anxiety F41.9 and PTSD (post-traumatic stress disorder) F43.[address] [address] 10/17/2024 Guillaume San Bipolar II disorder F31.81 ; Anxiety F41.9 ; PTSD (post-traumatic stress disorder) F43.10 ; Binge eating disorder, moderate F50.811 and Medication monitoring encounter Z51.[address] [address] 01/01/2025 Guillaume San Bipolar II disorder F31.81 ; Anxiety F41.9 and Binge eating disorder, moderate F50.[address] [place] [address] 01/02/2025 Jessy Pearl Pilonidal cyst L05.9 1 and Nicotine dependence F17.200 [address] [address] [place] [address] 02/06/2025 Jessy Pearl Over weight E66.3 ; Epigastric abdominal pain R10.13 and Elevated liver enzymes R74.[address] [place] [address] 04/21/2025 Guillaume San Bipolar II disorder F31.81 ; Anxiety F41.9 and Binge eating disorder, moderate F50.[address] [place] [address] 05/01/2025 Harrison Mosley Right upper quadrant abdominal pain R10.11 [facility] [address] [address] 04/24/2025 Guillaume San [address] [place] [address] 10/21/2024 Guillaume San Bipolar II disorder F31.81 [facility] [address] [address] 11/06/2024 Jessy Pearl Screening for deficiency anemia Z13.0 ; Screening for metabolic disorder Z13.228 ; Screening for thyroid disorder Z13.29 and Screening for hyperlipidemia Z13.[address] [place] [address] 12/26/2024 Guillaume San Bipolar II disorder F31.81 [facility] [address] [address] 12/26/2024 Guillaume San [facility] [address] [place] [address] 01/01/2025 Guillaume San [address] [place] [address] 01/07/2025 Guillaume San Bipolar II disorder F31.[address] [place] [address] 04/04/2025 Guillaume San Bipolar II disorder F31.81 ; Anxiety F41.9 and Binge eating disorder, moderate F50.[address] [place] [address] 04/17/2025 Guillaume San [address] [place] [address] 05/24/2024 Guillaume San [address] [place] [address] 06/21/2024 Guillaume San Assessments Encounter Date Diagnosis (ICD Code) Assessment Notes Treatment Notes Treatment Clinical Notes Section Notes 05/01/2025 Right upper quadrant abdominal pain (ICD-10 - R10.11) SUSPECT CHOLECYSTITIS , POSSIBLE CONCURRENT GASTRITIS/AVINASH D/PUD. TO HAVE RUQ U/S DONE AT [facility] AT 3 PM TODAY. FAST UNTIL THEN. ADDENDUM 16:10: U/S RUQ CONFIRMS CHOLELITHIASI S, FATTY LIVER, HEPATOMEGALY. D/W ALICE LOW FAT DIET, SMALL FEEDINGS, GO TO ED IF SYMPTOMS BECOME SEVERE. URGENT SURGICAL REFERRAL PLACED. 04/21/2025 Bipolar II disorder (ICD-10 - F31.81) 04/21/2025 Anxiety (ICD-10 - F41.9) 10/17/2024 Anxiety (ICD-10 - F41.9) Client with increased anger, binge eating, depressive symptoms including fatigue. Client agreeable to increased Focalin and Latuda and she requests a trial of trazodone discontinuation to see if helpful for her symptoms. She is working in therapy but hasn't gone in a while. Encouraged client to re-engage. 10/21/2024 Bipolar II disorder (ICD-10 - F31.81) 11/06/2024 [...] 04/04/2025 Bipolar II disorder (ICD-10 - F31.81) 05/23/2024 Bipolar II disorder (ICD-10 - F31.81) [...] changes at this visit. 06/12/2024 Screening for deficiency anemia (ICD-10 - Z13.0) 06/18/2024 Bipolar II disorder (ICD-10 - F31.81) Client with improvements in mood/anger with decrease in venlafaxine and addition of Latuda. No changes in treatment plan currently. 06/12/2024 Establishing care with new doctor, encounter for (ICD-10 - Z76.89) 08/13/2024 Bipolar II disorder (ICD-10 - F31.81) [...] a while. Encouraged client to re-engage. 10/17/2024 PTSD (post-traumatic stress disorder) (ICD-10 - [...] to tx plan needed at this time. 11/06/2024 Screening for thyroid disorder (ICD-10 - Z13.29) 04/21/2025 Binge eating disorder, moderate (ICD-10 - F50.811) 10/17/2024 Binge eating disorder, moderate (ICD-10 - F50.811) Client with increased anger, binge eating, depressive symptoms including fatigue. Client agreeable to increased Focalin and Latuda and she requests a trial of trazodone discontinuation to see if helpful for her symptoms. She is working in therapy but hasn't gone in a while. Encouraged client to re-engage. 11/06/2024 Screening for hyperlipidemia (ICD-10 - Z13.220) 04/04/2025 Binge eating disorder, moderate (ICD-10 - F50.811) 05/23/2024 Anxiety (ICD-10 - F41.9) Client is open to reduction of venlafaxine and adding Latuda to treatment plan to see if this reduces irriatbility and anger issues. No other treatment plan changes at this visit. 08/13/2024 PTSD (post-traumatic stress disorder) (ICD-10 - F43.10) Client doing well, no treatment plan changes needed. 06/18/2024 PTSD (post-traumatic stress disorder) (ICD-10 - F43.10) Client with improvements in mood/anger with decrease in venlafaxine and addition of Latuda. No changes in treatment plan currently. 06/12/2024 Screening for hyperlipidemia (ICD-10 - Z13.220) 06/12/2024 Binge eating disorder (ICD-10 - F50.81) 06/18/2024 Anxiety (ICD-10 - F41.9) Client with improvements in mood/anger with decrease in venlafaxine and addition of Latuda. No changes in treatment plan currently. 05/23/2024 PTSD (post-traumatic stress disorder) (ICD-10 - [...] too harsh. 06/12/2024 Rash (ICD-10 - R21) 05/23/2024 [place] [...] number to the 24-hour crisis line at [facility]. Questions addressed. Client verbalized understanding of [...] number to the 24-hour crisis line at [facility]. Questions addressed. Client verbalized understanding of [...] number to the 24-hour crisis line at [facility]. Questions addressed. Client verbalized understanding of [...] number to the 24-hour crisis line at [facility]. Questions addressed. Client verbalized understanding of [...] number to the 24-hour crisis line at [facility]. Questions addressed. Client verbalized understanding of all information and is agreeable to treatment plan. Client doing well, no changes to tx plan needed at this time. 01/02/2025 Other Patient may self-administ er their own medications or may self-administ er their own oral medications per [place] Protocol. 04/21/2025 [place] [...] number to the 24-hour crisis line at [facility]. Questions addressed. Client verbalized understanding of all information and is agreeable to treatment plan. 05/01/2025 Other [place] PDMP W/O ISSUES Plan Of Treatment No Information Insurance Providers Payer Name Payer Address Payer Phone Subscriber Number Group Number Insured Name Patient Relationship to Insured Coverage Start Date Coverage End Date [facility] [address] [address] [place] [address] [id number] Alice Chacon Self - patient is the insured 3 [facility] Claims Department [address] [place] [address] [id number] Alice Chacon Self - patient is the insured 5 MED[place] [place] [address] [id number] Alice Chacon Self - patient is the insured 5 5 Medical (General) History Medical History History ICD Code Bipolar affective disorder, remission st atus unspecified F31.9 Anxiety F41.9 irritable bowel syndrome with diarrhea Keratosis pilaris Surgical History Surgery Date(Month/Year) rhinoplasty belly button removal wisdom teeth removal Hospitalization History Reason Date(Month/Year)
[2025-05-16 13:17] LABS: Alanine Aminotransferase 29 U/L (6-35); Albumin Level 4.2 g/dL (3.5-5.1); Alkaline Phosphatase 88 U/L (38-126); Amylase 66 U/L (30-110); Aspartate Amino Transferase 31 U/L (14-36); Bilirubin,Total 0.3 mg/dL (0.2-1.3); Lipase 63 U/L (23-300); Total Protein 7.4 g/dL (6.3-8.2)
== END 2025-05-16 11:43 | disposition home or self-care (01) ==
PROVIDERS: PCP Internal Medicine; Visit Provider Surgery
DX: Z01.812 Encounter for preprocedural laboratory examination (principal); K80.10 Calculus of gallbladder with chronic cholecystitis without obstruction
CPT/HCPCS: 36415; 80076; 82150; 83690

== ENCOUNTER 2025-05-21 00:41 | Day surgery (SDC) | payer OTHER, SELFPAY ==
[2025-05-14 16:35] VITALS: BMI 37.5
--- NOTE | 2025-05-14 16:43 | SUR.PREOP ---
Report to the Outpatient Waiting Room, entrance under the green pavilion located off [facility], at time 10:00a.m on date 05/21/2025. Planned Procedure Time: 12:00a.m.? Time changes happen often and if your time is changed the preop area will call you the afternoon before. - You and your visitor will be asked to self-screen and do not enter if you have any COVID symptoms. Please call surgeon if you need to reschedule. - A mask is optional within the hospital at this time. Patients may have clear liquids (water, carbonated beverages, clear teas, apple juice) until 3 hours prior to surgery with a maximum of 20 ounces. - No food from midnight until time of surgery and no smoking, or chewing tobacco (or any form of nicotine). No chewing gum, candy or mints. Take only the following medications with a SIP of water on the morning of surgery: propranolol, buspirone, lamotrigine, venlafaxine DO NOT STOP ANY OF YOUR OTHER PRESCRIPTION MEDICATIONS PRIOR TO SURGERY EXCEPT THE FOLLOWING Hold all vitamins and supplements for 3 days per anesthesiologist. Medications to discontinue per physician N/A Date to take last dose N/A Please no make-up, nail st helenian, hairspray, perfume, deodorant, or body powder the day of surgery.? No jewelry (including any body piercings) or valuables the day of surgery, leave them at home.? Please take a shower or bath the night before, or the morning of, surgery with an antibacterial soap.? Wear comfortable, loose fitting clothing.? Children are encouraged to wear pajamas. - Jewelry must be removed prior to entering the operating room.? Rings and piercings that are not removed may be cut off. - The hospital will not accept responsibility for valuables.? - Please leave all valuables, including medications, at home the day of surgery. If you are going home after surgery, a licensed team truck driver must drive you home.? - NO public transportation without another adult if you receive anesthesia. - We recommend that an adult stay with you for 24 hours following discharge. - We also recommend that you do not drive, make important decision, drink alcoholic beverages, or take any drugs that were not prescribed by your health care provider for at least 24 hours after your discharge time. For Pediatric surgeries, we recommend two adults accompany the child home. Follow any additional instructions given to you from your surgeon. Telephone instructions given to Sarita Chacon and asked if any additional questions and then verbalized understanding. Patient advised to call surgeon office or pre surgery nurse liaison [phone] if any additional questions.
[2025-05-21] VITALS (9 sets, daily range): BP systolic 107–129; BP diastolic 56–76; PULSE 60–86; RESP 14–18; TEMP 36.1–37; O2SAT 98
--- OUTSIDE RECORDS SUMMARY | 2025-05-21 00:44 | XMS_ITS | Patient Health Record ---
Author Organization [facility] Address [address] [place] [address] Care Team Providers Care Java Software Architect Name Role Phone Harrison Mosley Primary Care Provider Guillaume San Unavailable [phone] Jessy Pearl Unavailable [phone] Allergies No Known Allergies Results Component Value [...] neg OXY neg PCP neg BUP neg Ultrasound : Right Upper Guero drant Reviewed date:05/08/2025 07:25:56 AM Interpretation: Performing Lab: Notes/Report: Reason For Referral Reason CHOLELITHIASIS, RUQ PAIN INTERMITTENTLY FOR A FEW MONTHS, LIKELY NEEDS CHOLECYSTECTOMY Diagnosis 1 Right upper quadrant abdominal pain (R10.11) Referral Organization [facility] Referring Provider First Name Harrison Referring Provider Last Name Melany Referring Provider Speciality Internal M edicine Referred Provider Specialty Surgery General Notes Lana Johnson RN 05/01/2025 04:38:25 PM > Referral to [facility] Surgery. Letter to Patient. Clinical Notes [facility] up[facility]Pulmonology , [address] [address] [address], [facility] [address], Referral Priority Urgent Medications Medication SIG (Take, [...] Status Risk Notes Problem Bipolar II disorder (77389832) Bipolar II disorder (F31.81) 08/31/20 22 Active confirmed Problem Irritable bowel syndrome with diarrhea (241007809) Irritable bowel syndrome with diarrhea (K58.0) Active confirmed Problem Attention deficit hyperactivity disorder (468997316) ADHD (attention deficit hyperactivity disorder), combined type (F90.2) Active confirmed Problem Posttraumatic stress disorder (69322760) PTSD (post-traumatic stress disorder) (F43.10) Active confirmed Problem Anxiety (76660674) Anxiety (F41.9) Active confirmed Problem Overweight (654742015) Over weight (E66.3) Active confirmed Problem Nicotine dependence (26076618) Nicotine dependence (F17.200) Active confirmed Problem Bipolar disorder (14203886) Bipolar affective disorder, remission status unspecified (F31.9) 08/31/20 22 Active confirmed Problem Obsessive-compuls jayden disorder (168959501) Mixed obsessional thoughts and acts (F42.2) Active confirmed Problem Binge eating disorder (719379498) Binge eating disorder (F50.81) Active confirmed Problem Obesity (320769356) Obesity, unspecified classification, unspecified obesity type, unspecified [...] 05/01/2025 Encounters Encounter Location Date Provider Diagnosis [address] [place] [address] 05/23/2024 Guillaume San Medication monitorin g encounter Z51.81 ; Bipolar II disorder F31.81 ; Binge eating disorder F50.81 ; Anxiety F41.9 and PTSD (post-traumatic stress disorder) F43.[address] [address] 06/12/2024 Jessy Pearl Establishing care wi th new doctor, encounter for Z76.89 ; Screening for deficiency anemia Z13.0 ; Screening for metabolic disorder Z13.228 ; Screening for hyperlipidemia Z13.220 ; Binge eating disorder F50.81 ; Anxiety F41.9 ; Irritable bowel syndrome with diarrhea K58.0 ; Knee pain M25.569 ; Keratosis pilaris L85.8 and Rash R21 [address] [address] 06/18/2024 Guillaume San Bipolar II disorder F31.81 ; Binge eating disorder F50.81 ; PTSD (post-traumatic stress disorder) F43.10 and Anxiety F41.[address] [address] 08/13/2024 Guillaume San Bipolar II disorder F31.81 ; Binge eating disorder, moderate F50.811 ; Anxiety F41.9 and PTSD (post-traumatic stress disorder) F43.[address] [address] 10/17/2024 Guillaume San Bipolar II disorder F31.81 ; Anxiety F41.9 ; PTSD (post-traumatic stress disorder) F43.10 ; Binge eating disorder, moderate F50.811 and Medication monitoring encounter Z51.[address] [address] 01/01/2025 Guillaume San Bipolar II disorder F31.81 ; Anxiety F41.9 and Binge eating disorder, moderate F50.811 [address] [place] [address] 01/02/2025 Jessy Pearl Pilonidal cyst L05.9 1 and Nicotine dependence F17.200 [address] [address] [place] [address] 02/06/2025 Jessy Pearl Over weight E66.3 ; Epigastric abdominal pain R10.13 and Elevated liver enzymes R74.[address] [place] [address] 04/21/2025 Guillaume San Bipolar II disorder F31.81 ; Anxiety F41.9 and Binge eating disorder, moderate F50.[address] [place] [address] 05/01/2025 Harrison Mosley Right upper quadrant abdominal pain R10.11 [facility] [address] [address] 05/19/2025 Guillaume San [address] [place] [address] 10/21/2024 Guillaume San Bipolar II disorder F31.81 [facility] [address] [place] [address] 11/06/2024 Jessy Pearl Screening for deficiency anemia Z13.0 ; Screening for metabolic disorder Z13.228 ; Screening for thyroid disorder Z13.29 and Screening for hyperlipidemia Z13.[address] [place] [address] 12/26/2024 Guillaume San Bipolar II disorder F31.81 [facility] [address] [address] 12/26/2024 Guillaume San [facility] [address] [place] [address] 01/01/2025 Guillaume San [address] [place] [address] 01/07/2025 Guillaume San Bipolar II disorder F31.[address] [place] [address] 04/04/2025 Guillaume San Bipolar II disorder F31.81 ; Anxiety F41.9 and Binge eating disorder, moderate F50.[address] [place] [address] 04/17/2025 Guillaume San [facility] [address] [place] [address] 04/24/2025 Guillaume San Binge eating disorde r, moderate F50.[address] [place] [address] 05/24/2024 Guillaume San [address] [place] [address] 06/21/2024 Guillaume San Assessments Encounter Date Diagnosis (ICD Code) Assessment Notes Treatment Notes Treatment Clinical Notes Section Notes 05/01/2025 Right upper quadrant abdominal pain (ICD-10 - R10.11) SUSPECT CHOLECYSTITIS , POSSIBLE CONCURRENT GASTRITIS/AVINASH D/PUD. TO HAVE RUQ U/S DONE AT [facility] AT 3 PM TODAY. FAST UNTIL THEN. ADDENDUM 16:10: U/S RUQ CONFIRMS CHOLELITHIASI S, FATTY LIVER, HEPATOMEGALY. D/W SARITA LOW FAT DIET, SMALL FEEDINGS, GO TO ED IF SYMPTOMS BECOME SEVERE. URGENT SURGICAL REFERRAL PLACED. 04/24/2025 Binge eating disorder, moderate (ICD-10 - F50.811) Stopping Focalin and sending as generic Vyvanse. Client is in CBT therapy and has been for years. Has been on Vyvanse in the past with good results but was forced off by insurance denial last year. Binge eats 3+ times a day off medications and typically gains 10+ pounds a month off medication. Obese currently. Has been on SSRI x2 but also is bipolar and needs mood stabilization. 10/21/2024 Bipolar II disorder (ICD-10 - F31.81) [...] number to the 24-hour crisis line at [facility]. Questions addressed. Client verbalized understanding of [...] number to the 24-hour crisis line at [facility]. Questions addressed. Client verbalized understanding of [...] number to the 24-hour crisis line at [facility]. Questions addressed. Client verbalized understanding of [...] number to the 24-hour crisis line at [facility]. Questions addressed. Client verbalized understanding of [...] number to the 24-hour crisis line at [facility]. Questions addressed. Client verbalized understanding of all information and is agreeable to treatment plan. Client doing well, no changes to tx plan needed at this time. 01/02/2025 Other Patient may self-administ er their own medications or may self-administ er their own oral medications per [place] Protocol. 04/21/2025 [place] [...] number to the 24-hour crisis line at [facility]. Questions addressed. Client verbalized understanding of all information and is agreeable to treatment plan. 05/01/2025 Other [place] PDMP W/O ISSUES Plan Of Treatment No Information Insurance Providers Payer Name Payer Address Payer Phone Subscriber Number Group Number Insured Name Patient Relationship to Insured Coverage Start Date Coverage End Date [facility] [address] [address] [place] [address] [id number] Sarita Chacon Self - patient is the insured 3 [facility] Claims Department [address] [place] [address] [phone] [id number] Sarita Chacon Self - patient is the insured 5 MEDICAID [address] [place] [address] [id number] Sarita Chacon Self - patient is the insured 5 5 Medical (General) History Medical History History ICD Code Bipolar affective disorder, remission st atus unspecified F31.9 Anxiety F41.9 irritable bowel syndrome with diarrhea Keratosis pilaris Surgical History Surgery Date(Month/Year) rhinoplasty belly button removal wisdom teeth removal Hospitalization History Reason Date(Month/Year)
--- OUTSIDE RECORDS SUMMARY | 2025-05-21 00:44 | XMS_ITS | Clinical Summary ---
Author Organization [facility] Address [address] [address] Care Team Providers Care Griddle Cook Name Role Phone Rachael Duffy DO Primary Care Provider [phone] Source Comments [facility],non-owned Affiliates and Associated Physician Practices is amultiple site organization consisting of ambulatory clinics and hospital sitesin [place], [place], [place] and [place]. This disclosure is being madepursuant to the Care Everywhere program and may not contain all information available regarding this patient. Last updated 18.[facility] Allergies No known active allergies Medications * [...] ativan. With brexpiprazole can see extrapyramidal symptoms, YOUTH PROBATION OFFICER depression, hypotension. Half life can be up to 91 hours. With trazodone can see QT prolongation, YOUTH PROBATION OFFICER depression, hypotension, and serotonin syndrome. With ativan [...] ativan. With brexpiprazole can see extrapyramidal symptoms, YOUTH PROBATION OFFICER depression, hypotension. Half life can be up to 91 hours. With trazodone can see QT prolongation, YOUTH PROBATION OFFICER depression, hypotension, and serotonin syndrome. With ativan overdose can see hypotension, respiratory depression, and bradycardia. We will monitor for these effects. EKG x2 have been normal, no further EKG needed. Pt is doing much better today, neuro exam unremarkable. Pt is medically stable and cleared for further evaluation by central intake, awaiting bed placement. Plan: - observation by aviation safety technician and safety check room -diet regular -monitor I and O -VSq4 -consult to social media manager - Consult toxicology, reccs appreciated: per tox, [...] ativan. With brexpiprazole can see extrapyramidal symptoms, YOUTH PROBATION OFFICER depression, hypotension. Half life can be up to 91 hours. With trazodone can see QT prolongation, YOUTH PROBATION OFFICER depression, hypotension, and serotonin syndrome. With ativan overdose can see hypotension, respiratory depression, and bradycardia. We will monitor for these effects. EKG x2 have been normal, no further EKG needed. Pt is doing much better today, neuro exam unremarkable. Pt is medically stable and cleared for further evaluation by central intake, awaiting bed placement. Plan: - observation by aviation safety technician and safety check room -diet regular -monitor I and O -VSq4 -consult to social media manager - Consult toxicology, reccs appreciated: per tox, [...] ativan. With brexpiprazole can see extrapyramidal symptoms, YOUTH PROBATION OFFICER depression, hypotension. Half life can be up to 91 hours. With trazodone can see QT prolongation, YOUTH PROBATION OFFICER depression, hypotension, and serotonin syndrome. With ativan overdose can see hypotension, respiratory depression, and bradycardia. We will monitor for these effects. EKG x2 have been normal, no further EKG needed. Pt is doing much better today, neuro exam unremarkable. Pt is medically stable, VSS, and tolerating PO. Plan: - observation by aviation safety technician and safety check room -diet regular -monitor I and O -VSq4 -CR monitoring d/c 08/18 -continuous pulse ox d/c 08/18 -consult to social media manager - MIVF @ 100 mls/hr d/c and [...] ativan. With brexpiprazole can see extrapyramidal symptoms, YOUTH PROBATION OFFICER depression, hypotension. Half life can be up to 91 hours. With trazodone can see QT prolongation, YOUTH PROBATION OFFICER depression, hypotension, and serotonin syndrome. With ativan overdose can see hypotension, respiratory depression, and bradycardia. We will monitor for these effects. Plan: - observation by aviation safety technician and safety check room -diet NPO -monitor I and O -VSq4 -CR monitoring -continuous pulse ox -consult to social media manager - MIVF @ 100 mls/hr - Repeat EKG completed in the AM - Consult toxicology, reccs appreciated -monitor for s/s hypotension, Serotonin syndrome, and vitals closely -UA pending Assessment & Plan (08/17/2017 3:02 AM CDT): Assessment: 17 y.o. F with history of anxiety and depression here with ingestion of trazodone, brexpiprazole, and ativan. With brexpiprazole can see extrapyramidal symptoms, YOUTH PROBATION OFFICER depression, hypotension. With trazodone can see QT prolongation, YOUTH PROBATION OFFICER depression, hypotension, and serotonin syndrome. 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
--- NOTE | 2025-05-21 08:17 | WPDHPUPDATE1 ---
History and Physical Update Update Date/Time: 05/21/25 08:17 History and Physical has been reviewed, including an updated exam of the patient. There are NO changes in the patient's condition. Risks, benefits, and alternatives have been discussed and questions answered. Patient agrees to proceed with procedure.
[2025-05-21] MEDS: ACETAMINOPHEN 500 MG TABLET 1000 MG PO (10:15)
[2025-05-21] MEDS: KETOROLAC 15 MG/ML VIAL (*BKC) IV PUSH (10:22)
[2025-05-21] MEDS: LACTATED RINGERS 1,000 ML 30 ML IV CONT ×2 (10:30→14:12)
--- NOTE | 2025-05-21 11:50 | P.PNAN_ITS ---
Anes - Initial Pre Proc Eval Procedure: Operation Date: 05/21/25 12:00 Proposed Procedures p Laparoscopic Cholecystectomy - Jahaira Deleon MD Date/Time: 05/21/25 11:50 Surgeon: Jahaira Deleon MD Pre Op Diagnosis: chronic calculous cholecystitis Patient Data Age: 24 Gender: F Height: 1.65 m Weight: 102.2 kg Last Vital Signs Temp 36.1 C L 05/21/25 09:55 Pulse 80 05/21/25 09:55 Resp 16 05/21/25 09:55 BP 129/69 05/21/25 09:55 Pulse Ox 98 05/21/25 09:55 O2 Del Method Room Air 05/21/25 09:55 Allergies Allergy/AdvReac Type Severity Reaction Status Date / Time No Known Allergies Allergy Verified 05/21/25 10:45 Home Medications ?Medication ?Instructions ?Recorded ?Confirmed ?Type trazodone 150 mg tablet 150 mg PO QHS PRN insomnia 09/13/22 05/14/25 History venlafaxine 150 mg 150 mg PO DAILY 09/13/22 05/21/25 History capsule,extended release 24 hr (Effexor XR) dexmethylphenidate 35 mg 35 mg PO DAILY 01/22/25 05/14/25 History capsule,extended release [id number] buspirone 10 mg tablet 30 mg PO DAILY 05/06/25 05/21/25 History lamotrigine 100 mg tablet 150 mg PO DAILY 05/06/25 05/21/25 History propranolol 10 mg tablet 40 mg PO Q12H 05/06/25 05/14/25 History drospirenone 3 mg-ethinyl 1 tablet PO DAILY #112 tabs 05/09/25 05/21/25 Rx estradiol 0.03 mg tablet (Shila) buspirone 15 mg tablet 15 mg PO HS 05/14/25 05/21/25 History lurasidone 40 mg tablet 40 mg PO QPM 05/14/25 05/21/25 History Patient hx anesthesia problems: none Family hx anesthesia problems: none Results Review: All pre-operative results and documents have been reviewed as part of the pre- operative evaluation. [facility] Past Medical History Medical History Gallbladder disorder ADHD Encounter for screening colonoscopy Anxiety disorder IBS (irritable bowel syndrome) Bipolar disorder Surgical History Surgical History H/O endoscopy History of nasal surgery 2016 Family History Family History Mother Depression Hypertension Grandparent Thyroid disorder Social History Social History Smoking status: Current every day smoker Tobacco type: e-cigarettes/vaping Alcohol intake: current Alcohol use details: Socially, very rare Substance use: current Substance use type: marijuana Last use: rarely Do You Feel Safe in your Home?: Yes Lack of Transportation: No Lack of Food: Never True Current Housing: I Have Housing Concerned About Future Housing: No Difficulty Paying Gas/Electric Bills: No Difficulty Paying for Meds: YES Currently Unemployed: No Education: High School Diploma/GED Difficulty w/ Childcare or Family Care: No Living arrangements: with family Occupation/Education: occupation 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 Gender identity (if verbalized by the patient): Female Sexual Orientation (if Verbalized by the Patient): Bisexual Anes - Eval Final PreProcedure Day of Procedure 05/21/25 11:50 Patient weight: obese Heart: regular rate and rhythm Lungs: clear to auscultation Airway: Mallampati scale class II Neurological: alert and oriented Last oral intake: >/= 8 hours ASA classification: III Emergent: yes Anesthetic plan: proceed Anesthesia type and monitoring: general ETT and standard monitoring Results Review: All pre-operative results and documents have been reviewed as part of the pre- operative evaluation. Informed Consent: The patient's anesthetic plan and its attendant risks and benefits were discussed with the patient/family/POA. Questions were solicited and answers provided to the satisfaction of the patient/family/POA.
[2025-05-21] MEDS: ceFAZolin 2 GM in SODIUM CHLORIDE 0.9% IV 50 ML 100 ML IVPB (11:56)
[2025-05-21] MEDS: BUPIVACAINE/EPINEPHRINE 0.5% 50 ML VIAL 30 ML INFILTRATE (12:28)
--- NOTE | 2025-05-21 12:58 | S_PTH ---
PATIENT: Sarita Chacon LOC: [facility] U#:[id number] AGE/SX: 24/F ROOM: RE05/21/[address]: Jahaira Deleon MD : [id number] BED: DIS: 05/21/2025 SPEC #: [id number] RECD: 05/21/25 13:26 STATUS: CHUYITA REQ #: [id number] CINDY: 05/21/25 12:[address]: Jahaira Deleon DEPT: [facility] Surgical RECD BY: Jodie Higgins ENTERED: 05/21/25 13:26 SP TYPE: Surgical OTHR DR: Harrison Mosley MD Tissues: A - Gallbladder Procedures: Hematoxylin and Eosin Stain Gross and Microscopic Level 3
--- NOTE | 2025-05-21 13:15 | W.PM.PROC2 ---
Procedure Note - Detailed Date of Procedure 05/21/25 Pre-op Diagnosis Cholecystitis, cholelithiasis Post-op Diagnosis Other ( acute hydrops cholecystitis, cholelithiasis) Procedure Performed Laparoscopic cholecystectomy Surgeon Jahaira Deleon MD Anesthesia General Indications 24-year-old female presented to the office complaining of postprandial right upper quadrant abdominal pain associated with nausea and vomiting. Workup including imaging significant for cholecystitis, cholelithiasis. Findings acute hydrops cholecystitis with cholelithiasis Description of Procedure The patient was taken to the operating room placed in the supine position. After adequate induction of general anesthesia, the patient was prepped and draped in normal sterile fashion. A time-out was then performed to verify the patient's identity as well as the procedure being performed. I then made a 5 mm incision in the infraumbilical region. Through this, a Veress needle was placed into the peritoneal cavity and CO2 gas was then insufflated. After adequate pneumoperitoneum was achieved, the Veress needle was removed and a 5 mm optiview trocar was placed through this incision under direct visualization. I then placed the laparoscope through this trocar site and under direct visualization placed a further 12 mm subxiphoid port as well as 2 additional 5 mm ports in the right upper abdomen. The gallbladder was then identified and was noted to be severely inflamed, distended, and full of gallstones. Given the amount of inflammation and distention, we were unable to grasp the gallbladder for retraction. The gallbladder was subsequently decompressed. Hydrops cholecystitis was noted at this point. After decompression, I was able to place a grasper at the dome of the gallbladder and this was retracted anterior and cephalad up over the liver. A 2nd retractor was then placed at the infundibulum and retracted laterally, this allowed visualization of the triangle of Calot. I then was able to visualize the cystic duct in its entirety from its proximal insertion into the gallbladder, to its distal junction with the common hepatic/common bile duct junction. At this point, I carefully skeletonized the proximal cystic duct with the [place] dissector. I then clipped and transected the proximal cystic duct. Next I visualized the cystic artery. Again the artery was skeletonized, clipped, and transected. I then used the Bovie cautery to take down the peritoneal attachments of the gallbladder off the liver bed. This was somewhat difficult given the amount of inflammation in the posterior space. Once the gallbladder specimen was completely detached, an endo-pouch was placed through the 12 mm port site. I then placed the gallbladder specimen into the Endo pouch and removed the endo-pouch from the 12 mm port site. The specimen will now be sent to pathology for further review. I then copiously irrigated the right upper quadrant. Some mild oozing was noted in the liver bed and this was controlled with the bovie cautery. Hemostasis was noted in the liver bed, the clips were noted to be in good position on both the cystic duct stump and the cystic artery stump. No other pathology was noted in the right upper quadrant. I then moved the laparoscope to the subxiphoid port. No iatrogenic injury or other pathology was noted in the lower abdomen. I then closed the 12 mm trocar site under direct visualization using the Jace cone and 0 Vicryl suture. At this point, the abdomen was desufflated and all ports removed. All port sites were then closed with 4.O Monocryl subcuticular sutures. Dermabond was placed on each incision. The patient tolerated the procedure well, was extubated in the operating room postoperative and will be transferred to the recovery room in stable condition Estimated Blood Loss 50 Drains No Packing No Pathology Yes Complications No immediate complications Condition Stable Disposition PACU [facility] Billing Surgery - Charge Forward: Surgery Billing
[2025-05-21] MEDS: ONDANSETRON INJ 4 MG/2 ML VIAL IV PUSH (13:25)
[2025-05-21] MEDS: SCOPOLAMINE 1 MG PATCH 1 PATCH TRANSDERM (13:30)
[2025-05-21] MEDS: fentaNYL CITRATE INJ (*CRX) 100 MCG/2 ML VIAL 25 MCG IV PUSH ×2 (13:50→14:00)
[2025-05-21] MEDS: oxyCODONE HCL (*CRX) 5 MG TAB IR PO (14:46)
== END 2025-05-21 15:20 | disposition home or self-care (01) ==
PROVIDERS: PCP Internal Medicine; Visit Provider Surgery
PROC: 0FT44ZZ Resection of Gallbladder, Percutaneous Endoscopic Approach (ICD-10-PCS; CPT 47562; principal; 2025-05-21 12:00)
DX: K80.00 Calculus of gallbladder with acute cholecystitis without obstruction (principal); K21.9 Gastro-esophageal reflux disease without esophagitis; K58.9 Irritable bowel syndrome, unspecified; F90.9 Attention-deficit hyperactivity disorder, unspecified type; F41.9 Anxiety disorder, unspecified; F31.9 Bipolar disorder, unspecified; F17.290 Nicotine dependence, other tobacco product, uncomplicated; F12.90 Cannabis use, unspecified, uncomplicated; E66.9 Obesity, unspecified; Z68.37 Body mass index [BMI] 37.0-37.9, adult; Z98.890 Other specified postprocedural states
CPT/HCPCS: 47562; 88304; J0690; A9270; J1100; J1885; J2250; J2405; J2704; J3010; J7120